=== PATIENT | female | born 1940 | race Caucasian/White ===

== ENCOUNTER 2017-11-27 20:36 | Emergency (ER) | payer MEDICARE ==
--- NOTE | 2017-11-28 01:51 | ED ---
Lower Extremity - HPI Summary HPI Summary: 77-year-old female presents with left knee pain today. She believes she twisted it getting out of the car. She states pain only occurs when she is ambulating. She states that she cannot bend her knee. States that is worse when it is straight. she denies any numbness or tingling. No previous fracture to the area. No fevers. No rash. She hasn't taking anything for her symptoms. - History of Current Complaint Chief Complaint: EDExtremityLower Stated Complaint: LT KNEE PAIN Time Seen by Provider: 11/28/17 01:32 Pain Intensity: 9 - Allergies/Home Medications Allergies/Adverse Reactions: Allergies Allergy/AdvReac Type Severity Reaction Status Date / Time MS Penicillins [Penicillins] Allergy Hives Verified 10/18/15 00:53 PMH/Surg Hx/FS Hx/Imm Hx Endocrine/Hematology History: Denies: Hx Anticoagulant Therapy Cardiovascular History: Reports: Hx Hypertension Sensory History: Reports: Hx Contacts or Glasses Denies: Hx Cataracts, Hx Glaucoma Opthamlomology History: Reports: Hx Contacts or Glasses Denies: Hx Cataracts, Hx Glaucoma Neurological History: Reports: Other Neuro Impairments/Disorders - Menierres Disease, aneursyn - Cancer History Hx Chemotherapy: No Hx Radiation Therapy: No - Surgical History Surgery Procedure, Year, and Place: shunt placed. Infectious Disease History: No Infectious Disease History: Reports: Hx Shingles Denies: Traveled Outside the [place] in Last 30 Days - Social History Alcohol Use: None Substance Use Type: Reports: None Smoking Status (MU): Never Smoked Tobacco Review of Systems Negative: Fever Negative: Chest Pain Negative: Shortness Of Breath Positive: Myalgia - left knee pain All Other Systems Reviewed And Are Negative: Yes Physical Exam Triage Information Reviewed: Yes Vital Signs On Initial Exam: Initial Vitals Temp Pulse Resp BP Pulse Ox 97.7 F 74 16 183/70 96 11/27/17 20:38 11/27/17 20:38 11/27/17 20:38 11/27/17 20:38 11/27/17 20:38 Vital Signs Reviewed: Yes Appearance: Positive: Well-Appearing Skin: Positive: Warm, Dry Head/Face: Positive: Normal Head/Face Inspection Eyes: Positive: Normal, Conjunctiva Clear ENT: Positive: Pharynx normal Respiratory/Lung Sounds: Positive: Clear to Auscultation, Breath Sounds Present Cardiovascular: Positive: Normal, RRR Musculoskeletal: Positive: Strength/ROM Intact - left knee with pain, Edema Left - patella positive ballotment, Other - good pulses, neg anterior drawer, neg valgus and varus stress, nontender knee Neurological: Positive: Normal Psychiatric: Positive: Normal Diagnostics - Vital Signs Vital Signs Temp Pulse Resp BP Pulse Ox 11/27/17 22:25 97.7 F 66 16 153/61 100 11/27/17 20:38 97.7 F 74 16 183/70 96 - Laboratory Lab Statement: Any lab studies that have been ordered have been reviewed, and results considered in the medical decision making process. - Radiology knee Xray Interpretation: No Acute Changes - arthritis, no fx Radiology Interpretation Completed By: ED Physician Lower Extremity Course/Dx - Course Course Of Treatment: 77-year-old female presents with left knee pain today. She believes she twisted it getting out of the car. She states pain only occurs when she is ambulating. She states that she cannot bend her knee. States that is worse when it is straight. she denies any numbness or tingling. No previous fracture to the area. No fevers. No rash. She hasn't taking anything for her symptoms. On exam nontender knee. Full range of motion the knee with pain. Neurovascular intact. Negative anterior drawer negative varus valgus. X-ray read by me as just arthritis. Placed in knee immobilizer. We' ll give referral to orthopedic. Patient understands agrees with plan. - Diagnoses Differential Diagnosis/HQI/PQRI: Positive: Fracture (Closed), Sprain, Strain Provider Diagnoses: Left knee pain Discharge - Sign-Out/Discharge Documenting (check all that apply): Patient Departure - Discharge Plan Condition: Good Disposition: HOME Patient Education Materials: Knee Pain (ED) Referrals: Dorothy Gonzalez MD [Primary Care Provider] - Shannan Sharpe MD [Medical Doctor] - Additional Instructions: Keep immobilizer on area, use crutches as needed Take Tylenol every [address] ice on area Elevate follow up with ortho Return to ED if develop any new or worsening symptoms - Billing Disposition and Condition Condition: GOOD Disposition: Home
[2017-11-28 02:13] VITALS: BP 157/54
--- NOTE | 2017-11-28 07:37 | RAD ---
INDICATION: Left knee injury. TECHNIQUE: 4 views of the left knee were obtained. The knee is flexed in all views limiting the study. FINDINGS: There is mild lateral subluxation of the patella which is likely chronic. There is a large joint effusion present. No fracture is seen. There is chondrocalcinosis in the lateral compartment. There is moderate to severe osteoarthritic change in the patellofemoral compartment. IMPRESSION: 1. LIMITED STUDY, NO FRACTURE IS SEEN. IF THE PATIENT'S SYMPTOMS PERSIST RECOMMEND FOLLOW-UP IMAGING. 2. LARGE JOINT EFFUSION. 3. MILD LATERAL SUBLUXATION OF THE PATELLA AND MODERATE TO SEVERE OSTEOARTHRITIC CHANGE IN THE PATELLOFEMORAL COMPARTMENT. R2
--- NOTE | 2017-11-28 18:39 | ED ---
Progress - Progress Note Progress Note: Pt's final XR read reveals: 1. no fx 2. large joint effusion 3. mild lateral subluxation of patella and moderate to severe OA Pt was placed in a knee immobilizer and told to f/u w/ ortho Repeat image today reveals no effusion, no subluxation. Course/Dx - Course Course Of Treatment: 77-year-old female presents with left knee pain today. She believes she twisted it getting out of the car. She states pain only occurs when she is ambulating. She states that she cannot bend her knee. States that is worse when it is straight. she denies any numbness or tingling. No previous fracture to the area. No fevers. No rash. She hasn't taking anything for her symptoms. On exam nontender knee. Full range of motion the knee with pain. Neurovascular intact. Negative anterior drawer negative varus valgus. X-ray read by me as just arthritis. Placed in knee immobilizer. We' ll give referral to orthopedic. Patient understands agrees with plan. - Diagnoses Provider Diagnoses: Left knee pain Discharge - Sign-Out/Discharge Documenting (check all that apply): Post-Discharge Follow Up - Discharge Plan Condition: Good Disposition: HOME Patient Education Materials: Knee Pain (ED) Referrals: Shannan Sharpe MD [Medical Doctor] - Dorothy Gonzalez MD [Primary Care Provider] - Additional Instructions: Keep immobilizer on area, use crutches as needed Take Tylenol every [address] ice on area Elevate follow up with ortho Return to ED if develop any new or worsening symptoms - Billing Disposition and Condition Condition: GOOD Disposition: Home
== END 2017-11-28 02:10 | disposition home or self-care (01) ==
LOC: ED 20:36
DX: M25.562 Pain in left knee (principal)
CPT/HCPCS: 99282

== ENCOUNTER 2018-06-05 10:05 | Inpatient (IN) | payer MEDICARE ==
--- NOTE | 2018-05-27 17:23 | HP ---
HISTORY AND PHYSICAL: DATE OF ADMISSION/SURGERY: 06/05/18 DATE OF OFFICE VISIT: 05/27/18 SURGEON: Shannan Sharpe MD.* (DICTATED BY RONAN STANLEY) PROCEDURE: Left total knee arthroplasty. CHIEF COMPLAINT: Left knee pain. HISTORY OF PRESENT ILLNESS: Ms. Sherman is a 77-year-old female with continued complaints of left knee pain. She has failed conservative treatment and elected to proceed with a left total knee arthroplasty. PAST MEDICAL HISTORY: Meniere's disease, dementia, and history of a brain aneurysm. PAST SURGICAL HISTORY: Cholecystectomy, knee arthroscopy, and shunt placement. CURRENT MEDICATIONS: 1. Tramadol 50 mg every 6 hours as needed. 2. Hydrochlorothiazide 25 mg a day. 3. Potassium chloride 10 mEq 3 times a day. 4. Vitamin B12. 5. Probiotic Equate. 6. Sumatriptan as needed. 7. Diclofenac 50 mg as needed. 8. Senna. 9. Ibuprofen as needed. 10. Phenobarbital 15 mg 6 tablets at night. 11. Trazodone 50 mg 2 nightly. 12. Melatonin 3 mg 2 nightly. 13. Imodium. 14. Tylenol. 15. Vitamin D3. ALLERGIES: To PENICILLIN. FAMILY HISTORY: AFib. SOCIAL HISTORY: She is a 77-year-old female. She lives with her spouse. She does not smoke or use drugs. REVIEW OF SYSTEMS: A complete 14-point review of systems was reviewed with the patient. It was all negative or noncontributory. She denies history of DVT, PE , hepatitis, HIV, or anesthesia problems. PHYSICAL EXAMINATION GENERAL: She is well developed, well nourished, in no acute distress. VITAL SIGNS: She stands 5 feet 4 inches tall, weighs 128 pounds. Her blood pressure is 130/72, her heart rate is 68. HEENT: Normocephalic, atraumatic. NECK: Supple. No palpable lymph nodes. PULMONARY: The lungs are clear to auscultation bilaterally. CARDIO: Regular rate and rhythm. Strong S1, S2. ABDOMEN: Soft, nontender, nondistended. NEUROLOGICAL: She is alert and oriented x3. MUSCULOSKELETAL: Left lower extremity: The skin is intact. There are no open wounds or abrasions. There is a moderate joint effusion of the left knee, some tenderness over the medial and lateral joint line. There is a 12-degree valgus deformity and range of motion is 10 to 110 degrees of flexion with severe patellofemoral crepitus. She has a 2+ dorsalis pedis pulse. She is able to dorsiflex and plantarflex and has intact sensation. ASSESSMENT AND PLAN: Ms. Sherman is a 77-year-old female with end-stage osteoarthritis of the left knee. She has failed conservative treatment and elected to proceed with a left total knee arthroplasty. The surgery is scheduled for 06/05/[address] Sharpe discussed the risks and benefits of the surgery at today's visit and all of her questions were answered. She will follow up with Dr. Sharpe 2 weeks after the surgery. RONAN STANLEY [id number]/[facility] #: [id number] MTDD
[~2018-06-05 10:05] MED LIST: Acetaminophen TAB* 325 MG PO ONE; Buffered Lidocaine 1% SYRIN* 1 ML/SYRINGE INTRADERM ONE; Famotidine IV* 10 MG/ML 2 ML (20 mg) IV ONE; Gabapentin CAP(*) 300 MG PO ONE; Lactated Ringers 1000 ML Bag* 1,000 ML IV SCH; Tranexamic Acid 1,000 MG in NS 0.9% 50 ML* (outpatient use) IV SCH; celeCOXIB CAP* 100 MG PO ONE
[2018-06-05] MEDS ORDERED: Acetaminophen TAB* 325 MG ONE (10:25)
[2018-06-05] MEDS ORDERED: Gabapentin CAP(*) 300 MG ONE (10:25)
[2018-06-05] MEDS ORDERED: celeCOXIB CAP* 100 MG ONE (10:25)
[2018-06-05] MEDS ORDERED: Buffered Lidocaine 1% SYRIN* 1 ML/SYRINGE INTRADERM ONE (10:26)
[2018-06-05] MEDS ORDERED: Clindamycin 900 MG/D5W BAG(*) 900 MG/50 ML BAG IVPB ONE (10:26)
[2018-06-05] MEDS ORDERED: Famotidine IV* 10 MG/ML 2 ML (20 mg) ONE (10:26)
[2018-06-05] MEDS ORDERED: Midazolam* 1 MG/ML 10 ML VIAL (10 MG) ONE (11:12)
[2018-06-05] MEDS ORDERED: ROPIVACAINE 5 MG/ML 30 ML BTL (0.5%) ONE ×2 (11:12→12:54)
[2018-06-05] MEDS ORDERED: Lidocaine 2% PF * 5 ML VIAL ONE ×2 (11:12→13:52)
[2018-06-05] MEDS ORDERED: KETAMINE HCL* 50 MG/ML 10 ML VIAL ONE (11:12)
[2018-06-05] MEDS ORDERED: Propofol* 10 MG/ML 20 ML BTL ONE ×2 (11:12→13:51)
[2018-06-05] MEDS ORDERED: Ondansetron INJ* 2 MG/ML VIAL ONE ×2 (11:12→13:51)
[2018-06-05] MEDS ORDERED: Dexamethasone IV* 4 MG/ML 1 ML (4 MG) ONE ×2 (11:12→13:51)
[2018-06-05] MEDS ORDERED: fentaNYL* 50 MCG/ML 2 ML VIAL (100 MCG VIAL) ONE ×3 (11:12→13:51)
[2018-06-05] MEDS ORDERED: hydrALAZINE IV* 20 MG/ML VIAL ONE ×2 (12:42→15:58)
[2018-06-05] MEDS ORDERED: oxyCODONE/Acetamin 5/325 MG* TAB PO PRN ×2 (13:48→15:50)
[2018-06-05] MEDS ORDERED: Naloxone* 0.4 MG/ML 1 ML VIAL IV PRN (13:48)
[2018-06-05] MEDS ORDERED: Sevoflurane* BOTTLE ONE (14:07)
[2018-06-05] MEDS ORDERED: EPHEDrine (Pressors)* 50 MG/ML VIAL ONE (15:15)
[2018-06-05] MEDS ORDERED: Bisacodyl SUPP* 10 MG SUPP PR PRN (15:50)
[2018-06-05] MEDS ORDERED: Cyclobenzaprine TAB* 10 MG PO PRN (15:50)
[2018-06-05] MEDS ORDERED: diPHENhydraMINE PO* 25 MG PO PRN (15:50)
[2018-06-05] MEDS ORDERED: Ondansetron INJ* 2 MG/ML VIAL IV PRN (15:50)
[2018-06-05] MEDS ORDERED: diPHENhydraMINE IV* 50 MG/ML 1 ml VIAL (BENADRYL) IV PRN (15:50)
[2018-06-05] MEDS ORDERED: Morphine 4 MG/ML VIAL (1 ml) 4 MG/ML VIAL IV PRN (15:50)
[2018-06-05] MEDS ORDERED: traMADol TAB* 50 MG PO PRN (15:50)
[2018-06-05] MEDS ORDERED: Polyethylene Glycol 3350* 17 GM PACKET PO PRN (15:50)
[2018-06-05] MEDS ORDERED: Magnesium Hydroxide LIQ* 30 ML UDC PO PRN (15:50)
[2018-06-05] MEDS ORDERED: Acetaminophen IV 1GM/100ML * 100 ML ONE (15:58)
[2018-06-05] MEDS ORDERED: HYDROmorphone INJ1* 1 MG/ML SYRINGE ONE (16:43)
[2018-06-05] MEDS: HYDROmorphone INJ1* 1 MG/ML SYRINGE IV PRN ×3 (16:44→17:08)
[2018-06-05] MEDS: oxyCODONE/Acetamin 5/325 MG* TAB PO PRN (19:33)
[2018-06-05] MEDS: Lactated Ringers 1000 ML Bag* 1,000 ML IV SCH (19:35)
[2018-06-05] MEDS: Acetaminophen TAB* 325 MG PO SCH (20:10)
[2018-06-05] MEDS: Docusate CAP* 100 MG PO SCH (20:11)
[2018-06-05] MEDS: PHENobarbital TAB(*) 30 MG PO SCH (20:11)
[2018-06-05] MEDS: Magnesium Hydroxide LIQ* 30 ML UDC PO SCH (20:12)
[2018-06-05] MEDS: Clindamycin 600 MG IVPREMIX(* 600 MG/50 ML SDV IV SCH (23:05)
[2018-06-05] MEDS: Melatonin 3 MG TAB PO SCH (23:12)
[2018-06-06] MEDS: Acetaminophen TAB* 325 MG PO SCH ×3 (04:28→20:29)
[2018-06-06 04:53] LABS: Hematocrit 31 % (33-41); Hemoglobin 10.4 g/dL (12.0-16.0); Mean Platelet Volume 8.9 fL (7.4-10.4); Platelet Count 268 10^3/uL (150-450)
[2018-06-06 05:09] LABS: BUN/Creatinine Ratio 22.4 (8-20); Calcium 8.9 mg/dL (8.6-10.3); EGFR African American 103.5 (>60); EGFR Non-African American 85.6 (>60); Potassium 3.9 mmol/L (3.5-5.0)
[2018-06-06] MEDS: Clindamycin 600 MG IVPREMIX(* 600 MG/50 ML SDV IV SCH ×2 (06:08→13:03)
[2018-06-06] MEDS: Lactated Ringers 1000 ML Bag* 1,000 ML IV SCH ×2 (06:10→17:21)
[2018-06-06] MEDS ORDERED: Cyanocobalamin TAB* 500 MCG PO SCH (09:00)
[2018-06-06] MEDS ORDERED: Apixaban* 2.5 MG TAB PO SCH (09:00)
[2018-06-06] MEDS: Hydrochlorothiazide TAB* 25 MG PO SCH (09:39)
[2018-06-06] MEDS: Cyanocobalamin TAB* 500 MCG PO SCH (09:39)
[2018-06-06] MEDS: Docusate CAP* 100 MG PO SCH ×2 (09:39→20:29)
[2018-06-06] MEDS: oxyCODONE TAB* 5 MG TAB PO PRN ×3 (09:39→18:45)
[2018-06-06] MEDS: Magnesium Hydroxide LIQ* 30 ML UDC PO SCH ×2 (09:39→20:30)
[2018-06-06] MEDS: ACIDOPH PARACASEI B LACTIS PO SCH (09:43)
[2018-06-06] MEDS: Enoxaparin(*) 40 MG/0.4 ML SYR SUBCUT SCH (09:46)
--- NOTE | 2018-06-06 09:50 | PN ---
Progress Note - Progress Note Date of Service: 06/06/18 SOAP: Subjective: []patient seen at bedside, pain under adequate control. Family concerned about her mild confusion and forgetfulness for discharge home. Requesting PMRU consult. She denies SOB, CP, palpitations or dizziness. Objective: [] Vital Signs Temp 97.8 F 06/06/18 08:05 Pulse 73 06/06/18 08:05 Resp 16 06/06/18 08:05 BP 137/48 06/06/18 08:05 Pulse Ox 16 06/06/18 08:05 Intake & Output 06/05/18 06/06/18 06/06/18 18:59 06:59 18:59 Intake Total 2220 1495 Output Total 450 Balance 2220 1045 Weight 125 lb 3.2 oz Intake: IV Fluids 2100 1045 LR 2100 990 abx - clinda 55 Oral 120 450 Output: Urine 250 Sales 200 Other: # Bowel Movements 0 Laboratory Results - last 24 hr 06/06/18 06/06/18 04:33 04:33 Hgb 10.4 L Hct 31 L Plt Count 268 MPV 8.9 Sodium 134 L Potassium 3.9 Chloride 98 L Carbon Dioxide 29 Anion Gap 7 BUN 15 Creatinine 0.67 Est GFR ( Amer) 103.5 Est GFR (Non-Af Amer) 85.6 BUN/Creatinine Ratio 22.4 H Glucose 117 H Calcium 8.9 Left knee dressing is dry and intact calf NT and soft +DF left ankle sensation intact distally Assessment: []s/p left total knee replacement POD #1 Plan: []PT/OT WBAT LLE Lovenox 40 qd x30 days post op ( cannot take Eliquis with Dilantin per pharmacy) PMRU consult
--- NOTE | 2018-06-06 11:53 | OP ---
DATE OF OPERATION: 06/05/18 - ROOM #336 DATE OF : 42 ATTENDING SURGEON: Shannan Sharpe MD PEDIATRIC CRITICAL CARE NURSE: RONAN Schmitt. Ms. Cantor did help throughout the procedure with preparation of the leg, wound retraction, manipulation of the knee, and wound closure. ANESTHESIOLOGIST: Dr. Ovalles. ANESTHESIA: Spinal. PRE-OP DIAGNOSIS: End-stage degenerative osteoarthritis of the left knee joint. POST-OP DIAGNOSIS: End-stage degenerative osteoarthritis of the left knee joint. OPERATIVE PROCEDURE: Left total knee arthroplasty. TOURNIQUET TIME: 60 minutes. COMPLICATIONS: None. ESTIMATED BLOOD LOSS: 200 cc. SPECIMENS: Bone and cartilage from the left knee joint sent to Pathology. HARDWARE USED: This is cemented Ose[employer] Nephew total knee arthroplasty hardware. Two packages of Simplex bone cement. For the femur, a left size 5 narrow posterior stabilized Legion femoral component. For the tibia, size 3 left tibial base plate, Darby II. For the insert, a 9-mm posterior stabilized articular insert size 3-4 and for the patella, a 32 mm 3-peg all- poly patella with 7.5 thickness. BRIEF HISTORY/INDICATIONS: Ms. Sherman is a 77-year-old female with years of increasingly severe left knee pain. She failed conservative treatment with antiinflammatories, pain medications, intraarticular injections, and physical therapy. Her radiographs showed severe end-stage arthritis with [id number] contact. Due to continued pain and decreased quality of life, she elected to undergo a left total knee arthroplasty. Informed consent was obtained from the patient. She understood the risks of surgery included, but were not limited to bleeding, infection, damage to nearby structures, continued pain, need for further surgery, intraoperative fracture, nerve palsy, hardware failure or loosening, knee stiffness, loss of motion, stroke, heart attack, blood clot, and . She wished to proceed. INTRAOPERATIVE FINDINGS: Intraoperatively, the patient was noted to have complete deformation of the patella with extreme bone loss and osteophyte formation. She had a fractured lateral facet. This is a chronic nonunion. She had complete loss of cartilage along the medial and lateral compartment as well. She had extensive osteopenia noted throughout the case. DESCRIPTION OF PROCEDURE: Ms. Sherman was identified in the preanesthesia unit. Her left lower extremity was marked as the correct operative site. Informed consent was signed and placed in the chart. The patient was taken to the operating room and placed under spinal anesthesia. A Sales catheter was placed. Tourniquet was placed on the left thigh. Left lower extremity was prepped and draped in the usual sterile fashion. Preop time-out was made to correctly identify the patient side and site. Appropriate perioperative antibiotics were given within 1 hour of incision. Tourniquet was inflated and total tourniquet time for this procedure was 60 minutes. A midline incision was made with a 10 blade and carried down to the extensor mechanism. New 10 blade was used to make a standard medial parapatellar arthrotomy. Patella was subluxed lateral. The knee was flexed up. The anterior horn of the lateral meniscus and ACL were sharply released. A drill was used to enter the distal femur. Intramedullary distal femoral cutting guide was pinned on the distal femur. Oscillating saw was used to make the distal femoral cut. The external rotation guide was pinned on the distal femur. Distal femur was sized to a size 5. Size 5 multi-cutting jig was pinned on the distal femur. Oscillating saw was used to make the appropriate 4 chamfer cuts. Extramedullary tibial cutting guide was pinned on the proximal tibia. Oscillating saw was used to make a proximal tibial cut perpendicular to the mechanical axis of the tibia. The bone was carefully removed. The knee was brought out into full extension. Spacer block had good fit. Medial and lateral ligaments were well balanced. Flexion and extension gaps were well balanced. The knee was flexed up. Lamina engraver apprentice decorative was placed both medially and laterally. Any remaining meniscus was carefully removed used electrocautery. Curved osteotome was used to remove any posterior osteophytes. Tibial tray and drop sondra were placed and once again confirmed a satisfactory tibial cut. A size 5 narrow left femoral trial was impacted on to the distal femur and had excellent fit. The box for the posterior stabilized implant was prepared using a reamer and box-cut osteotome. A size 3 tibial tray trial with a 9-mm insert trial was placed. The knee was taken through range of motion. The knee had full extension to 130 degrees of flexion with satisfactory patellofemoral tracking. The patella was everted. There was a chronic nonunion along the fracture, along the lateral patellar facet. This was carefully removed. Oscillating saw was used to carefully re-form the completely deformed patella into a surface that kind of extended the patellar implant. The patella was sized to a size 32. Three peg holes were drilled through the size 32 guide. A 32 trial was placed and the knee was taken through range of motion. There was satisfactory patellofemoral tracking. All trials were carefully removed. The tibia was subluxed anteriorly and sized to a size 3. Proximal tibia was prepared using a size 3 keel punch. All bony cut surfaces were copiously irrigated with sterile saline and dried. Final implants were cemented into place starting with the tibia, followed by the femur and last the patella. A 9-mm insert trial was placed and the knee was brought out into full extension. The tourniquet was turned down. Electrocautery was used to obtain meticulous hemostasis. The knee was copiously irrigated with sterile saline. Once the cement had fully cured, the insert trial was removed. Any excess cement was removed from around the capsule and hardware. Final insert chosen was a 9-mm posterior stabilized articular insert size 3/4. This was locked into position on the tibial tray. Stability of the insert was checked and rechecked and noted to be stable. The extensor mechanism was closed using interrupted #1 Vicryl. The rest of the incision was closed in a layered fashion using 0 and 2-0 Vicryl. Skin was closed using running 3-0 nylon suture. Sterile Xeroform, 4x4s, and Webril were used to cover the incision. Michi wrap and cold pack were placed over this. The patient's anesthesia was reversed without difficulty. She will be taken to the PACU in stable condition. Intended weightbearing will be weightbearing as tolerated. [id number]/[facility] #: [id number] [facility]
--- NOTE | 2018-06-06 18:59 | PN ---
Hospitalist Progress Note Date of Service: 06/06/18 Hospital Medicine consulting for co-medical management. Patient was not seen, but chart was reviewed and I spoke with the patient's nurse. HTN well controlled this morning, SBP 130s on home medication. No evidence of seizure activity, and will continue home medication. Morning labs stable. Dispo per Ortho. Thank you for this consultation. We will continue to follow distantly.
[2018-06-06] MEDS: Melatonin 3 MG TAB PO SCH (20:29)
[2018-06-06] MEDS: PHENobarbital TAB(*) 30 MG PO SCH (20:29)
[2018-06-07] MEDS: oxyCODONE TAB* 5 MG TAB PO PRN ×4 (03:04→17:53)
[2018-06-07] MEDS: Acetaminophen TAB* 325 MG PO SCH ×3 (03:04→20:37)
[2018-06-07 05:45] LABS: Hematocrit 28 % (33-41); Hemoglobin 9.5 g/dL (12.0-16.0); Mean Platelet Volume 9.6 fL (7.4-10.4); Platelet Count 220 10^3/uL (150-450)
[2018-06-07] MEDS: Hydrochlorothiazide TAB* 25 MG PO SCH (08:42)
[2018-06-07] MEDS: Magnesium Hydroxide LIQ* 30 ML UDC PO SCH ×2 (08:42→20:46)
[2018-06-07] MEDS: Docusate CAP* 100 MG PO SCH ×2 (08:43→20:46)
[2018-06-07] MEDS: Enoxaparin(*) 40 MG/0.4 ML SYR SUBCUT SCH (08:43)
[2018-06-07] MEDS: Cyanocobalamin TAB* 500 MCG PO SCH (08:43)
[2018-06-07] MEDS: ACIDOPH PARACASEI B LACTIS PO SCH (08:48)
--- NOTE | 2018-06-07 09:33 | PN ---
Progress Note - Progress Note Date of Service: 06/07/18 SOAP: Subjective: []patient seen OOB, sister present. Pain managed, no CP, SOB, dizziness reported. Waiting to hear if PMRU accepting. Objective: [] Vital Signs Temp 98.4 F 06/07/18 08:02 Pulse 81 06/07/18 08:02 Resp 16 06/07/18 08:43 BP 140/63 06/07/18 08:02 Pulse Ox 98 06/07/18 08:02 Intake & Output 06/06/18 06/07/18 06/07/18 18:59 06:59 18:59 Intake Total 586 1304 480 Output Total 850 2300 Balance -264 -996 480 Intake: IV Fluids 654 LR 654 IVPB 106 abx - clinda 106 Oral 480 650 480 Output: Urine 850 2300 Other: Estimated Void Large # Voids 1 Laboratory Results - last 24 hr 06/07/18 05:21 Hgb 9.5 L Hct 28 L Plt Count 220 MPV 9.6 Left knee dressings changed wound benign minimal edema calf NT and soft sensation and circulation remain intact LLE Assessment: [] s/p LTK POD #2 Plan: []PT/OT WBAT LLE Lovenox 40 QD x 1 month post op Await PMRU decision
[2018-06-07] MEDS ORDERED: hydrALAZINE IV* 20 MG/ML VIAL IV SLOW PU PRN (14:27)
[2018-06-07] MEDS: PHENobarbital TAB(*) 30 MG PO SCH (20:37)
[2018-06-07] MEDS: Melatonin 3 MG TAB PO SCH (20:37)
[2018-06-08] MEDS: Acetaminophen TAB* 325 MG PO SCH ×2 (02:54→12:45)
--- NOTE | 2018-06-08 03:30 | CONS ---
CC: Dr. Montano * CONSULTATION REPORT: DATE OF CONSULT: 06/05/18 DATE OF ADMISSION: 06/05/18 PRIMARY CARE PROVIDER: Dr. Montano. REQUESTING PHYSICIAN IN CONSULT: Dr. Sharpe. ATTENDING PHYSICIAN: Dr. Dwyer (dictated by Audra Robles, PHILIPPE). REASON FOR CONSULT: Co-medical management of dementia, hypertension. HISTORY OF PRESENT ILLNESS/HOSPITAL COURSE: I will refer you to Dr. Sharpe's history and physical dictated on __ for complete details, but in short, Mrs. Sherman is a 77-year-old female with a past medical history significant for dementia, Meniere disease and brain aneurysm, who [place] [facility] [place]. PAST MEDICAL HISTORY: 1. Meniere disease. 2. Dementia. 3. History of brain aneurysm. 4. Hypertension. PAST SURGICAL HISTORY: 1. Cholecystectomy. 2. Knee arthroscopy. 3. Shunt placement. HOME MEDICATIONS: 1. Trazodone 100 mg p.o. at bedtime. 2. HCTZ 25 mg p.o. q.a.m. 3. Phenobarbital 90 mg p.o. at bedtime. 4. Melatonin 6 mg p.o. at bedtime. 5. Probiotic 1 tab p.o. q.a.m. 6. Allergy medication 1 tab p.o. q.a.m. 7. Diclofenac potassium 50 mg p.o. daily p.r.n. 8. Vitamin B12 one tab p.o. q.a.m. 9. Vitamin D3 1000 units p.o. q.a.m. 10. Tylenol 1 tab p.o. daily p.r.n. ALLERGIES: PENICILLIN. FAMILY HISTORY: The patient has a family history of atrial fibrillation. SOCIAL HISTORY: The patient lives at home with her . The patient ambulates independently. The patient does not smoke. She reports she quit 40 years ago. She reports a 15-year 3 packs a day history. The patient does not drink. The patient denies any drugs. The patient is a full code. REVIEW OF SYSTEMS: A 14-point review of system was completed and all were negative. PHYSICAL EXAM: General: Mrs. Sherman is a 77-year-old female who is sitting in the bed on short-stay surgical. She appears in no acute distress. She appears stated age. Vital Signs: Temp 97.4, HR 65, RR 16, O2 saturation 99% on 2 L, BP 134/57. HEENT: PERRLA. EOMs intact. Oral mucosa is moist without lesions. Posterior pharynx is clear. Neck: Full range of motion. No lymphadenopathy. Respiratory: Symmetrical chest expansion. No accessory muscle use. Lung sounds are clear. No rhonchi, wheezes or rubs. Cardiac: Regular rate and rhythm. S1, S2 present. No murmurs, rubs, or gallops. Extremities: Skin is warm and smooth bilaterally. No edema. No clubbing or cyanosis. Pedal pulses 2+ bilaterally. Musculoskeletal: The patient currently denies pain to the left knee. No other pain. Abdomen: Soft, nontender. Bowel sounds x4. Neuro: Awake, alert, oriented. Motor strength is 5/5 in the upper and lower extremities. Skin: Grossly intact without lesions. Dressing to the left knee is clean, dry, and intact. ASSESSMENT AND PLAN: Mrs. Sherman is a 77-year-old female with a past medical history significant for Meniere's, history of brain aneurysm and hypertension, who [place] [facility] [place] an elective left total knee replacement. She will be placed on short-stay floor. 1. Status post left total knee replacement. Management per Ortho. 2. Meniere disease. Supportive care. 3. Dementia. Supportive care. The patient should be reoriented as needed. The patient should be provided with glasses and hearing aids if she has them. We should avoid medications that would increase the risk of delirium. 4. History of brain aneurysm, status post shunt placement. The patient's family reports she has a history of brain aneurysm, status post shunt placement and clips. Friend and family report that she did have a seizure prior to the diagnosis, which led to the diagnosis. The patient has not had a seizure since that time. The patient should continue her phenobarbital 90 mg at night. The patient should be placed on seizure precautions. 5. Hypertension. The patient's reports she does have a history of hypertension and that is why she is on hydrochlorothiazide 25 mg p.o. daily. The patient can continue this as she has no hypotensive episodes currently. The patient's BP should be monitored regularly. 6. FEN: Diet has been ordered by Ortho. 7. Code status: The patient is a full code. 8. DVT prophylaxis: Ortho has ordered Lovenox. TIME SPENT: Approximately 60 minutes was spent on this consultation, greater than half the time was spent with the patient and caregiver obtaining my history , performing my physical exam, and reviewing my plan of care. This case has been reviewed with my attending, Dr. Dwyer, who agrees with my plan. AUDRA ROBLES, [place] [id number]/[facility] #: [id number] MTDD
[2018-06-08 06:55] LABS: Hematocrit 28 % (33-41); Hemoglobin 9.3 g/dL (12.0-16.0); Mean Platelet Volume 9.6 fL (7.4-10.4); Platelet Count 217 10^3/uL (150-450)
[2018-06-08] MEDS: oxyCODONE/Acetamin 5/325 MG* TAB PO PRN ×2 (08:01→12:47)
[2018-06-08] MEDS: Cyanocobalamin TAB* 500 MCG PO SCH (09:35)
[2018-06-08] MEDS: Hydrochlorothiazide TAB* 25 MG PO SCH (09:35)
[2018-06-08] MEDS: Docusate CAP* 100 MG PO SCH (09:35)
[2018-06-08] MEDS: Enoxaparin(*) 40 MG/0.4 ML SYR SUBCUT SCH (09:35)
[2018-06-08] MEDS: ACIDOPH PARACASEI B LACTIS PO SCH (09:36)
[2018-06-08] MEDS: Magnesium Hydroxide LIQ* 30 ML UDC PO SCH (09:36)
--- NOTE | 2018-06-08 11:03 | PN ---
Progress Note - Progress Note Date of Service: 06/08/18 SOAP: Subjective: []Pt seen at bedside with her family present. Denies CP, SOB, dizziness, nausea. Knee pain is well controlled. PMRU unable to offer a bed, patient and family concerned about going home alone. Objective: []General: Well appearing, NAD LLE: Left knee dressing changed, incision CDI without erythema or discharge. Thigh is soft, medial thigh with ecchymosis which is not tender, fluctuant or indurated. DF/PF intact, DP2+, sensation intact to light touch distally. Calves supple and nontender without erythema, edema or palpable cords Assessment: [] s/p LTK POD #3 Plan: []PT/OT WBAT LLE Lovenox 40 QD x 1 month post op human services manager will discuss DC options with pt. Daughter offered for patient to go to her home during rehab which I have encouraged. Plan for DC this afternoon Vital Signs Temp 98.2 F 06/08/18 07:57 Pulse 95 06/08/18 07:57 Resp 18 06/08/18 08:01 BP 126/46 06/08/18 07:57 Pulse Ox 98 06/08/18 08:00 Intake & Output 06/07/18 06/08/18 06/08/18 18:59 06:59 18:59 Intake Total 600 900 100 Output Total 200 900 900 Balance 400 0 -800 Intake: Oral 600 900 100 Output: Urine 200 900 900 Other: Estimated Void Large Date of Last Bowel 06/07/2018 Movement # Bowel Movements 1 1 Estimated Stool Amount Large Medium # Voids 1 Laboratory Last Values Hgb 9.3 g/dL (12.0-16.0) L 06/08/18 06:45 Hct 28 % (33-41) L 06/08/18 06:45 Plt Count 217 10^3/uL (150-450) 06/08/18 06:45 MPV 9.6 fL (7.4-10.4) 06/08/18 06:45 Sodium 134 mmol/L (135-145) L 06/06/18 04:33 Potassium 3.9 mmol/L (3.5-5.0) 06/06/18 04:33 Chloride 98 mmol/L (101-111) L 06/06/18 04:33 Carbon Dioxide 29 mmol/L (22-32) 06/06/18 04:33 Anion Gap 7 mmol/L (2-11) 06/06/18 04:33 BUN 15 mg/dL (6-24) 06/06/18 04:33 Creatinine 0.67 mg/dL (0.51-0.95) 06/06/18 04:33 Est GFR ( Amer) 103.5 (>60) 06/06/18 04:33 Est GFR (Non-Af Amer) 85.6 (>60) 06/06/18 04:33 BUN/Creatinine Ratio 22.4 (8-20) H 06/06/18 04:33 Glucose 117 mg/dL (70-100) H 06/06/18 04:33 Calcium 8.9 mg/dL (8.6-10.3) 06/06/18 04:33 []
[2018-06-08 12:29] VITALS: BP 158/54
--- NOTE | 2018-06-08 13:45 | DS ---
Orthopedic Discharge Summary - Discharge Summary Date of Admission:06/05/18 Date of Discharge:06/08/18 Date of Surgery: 06/05/18 Attending Orthopedic Provider: Dr Sharpe Pre-operative Diagnosis: Left knee osteoarthritis Operative Procedure:Left total knee arthroplasty History: RHONA CAMILO is a 77 year old F with years of increasingly severe left knee pain. Patient has failed conservative management and has elected to undergo a left total knee replacement Hospital Course: RHONA was admitted to [facility] on 06/05/18. Patient underwent a left total knee replacement without complication followed by a brief recovery in PACU and transfer to the Short Stay Surgical Unit in stable condition. Our hospitalist service, physical therapy and occupational therapy also participated in this patients care. Post-op day 1: patient was alert and in no acute distress. Dressing was clean, dry and intact. Operative extremity dorsiflexion and plantarflexion intact, sensation intact to light touch distally, DP2+. Post-op day two and three: dressing was changed, incision was clean, dry and intact. 06/08/18 patient was deemed to be medically and orthopedically stable for discharge home. Physical therapy goals were met. Home Medications Medication Instructions Recorded Confirmed Type PHENobarbital [Phenobarbital] 90 mg PO BEDTIME 10/18/15 06/05/18 History Acetaminophen TAB* [Tylenol TAB*] 1 tab PO DAILY PRN 05/27/18 06/05/18 History Cholecalciferol (Vitamin D3) 1,000 unit PO QAM 05/27/18 06/05/18 History [Vitamin D3] Cyanocobalamin TAB* [Vitamin B12 1 tab PO QAM 05/27/18 06/05/18 History TAB*] Diclofenac Potassium [Zipsor] 50 tab PO DAILY PRN 05/27/18 06/05/18 History Equate Allergy 1 tab PO QAM 05/27/18 06/05/18 History L.acidoph,Paracasei, B.lactis 1 tab PO QAM 05/27/18 06/05/18 History [Probiotic] Melatonin 6 mg PO BEDTIME 05/27/18 06/05/18 History hydroCHLOROthiazide 25 mg PO QAM 05/27/18 06/05/18 History [Hydrochlorothiazide] traZODone TAB* [Desyrel TAB*] 100 mg PO BEDTIME 05/27/18 06/05/18 History Acetaminophen TAB* [Tylenol TAB*] 975 mg PO Q8H tab 06/08/18 Rx Docusate CAP* [Colace Cap*] 100 mg PO BID PRN #90 cap 06/08/18 Rx Enoxaparin(*) [Lovenox(*)] 40 mg SUBCUT DAILY 30 Days #28 06/08/18 Rx syringe oxyCODONE/Acetamin 5/325 MG* 1 tab PO Q4HR PRN tab MDD 10 06/08/18 Rx [Percocet 5/325 TAB*] oxyCODONE/Acetamin 5/325 MG* 2 tab PO Q4HR PRN #70 tab MDD 10 06/08/18 Rx [Percocet 5/325 TAB*] Discharge Instructions following Orthopedic Surgery: Activity: * Weight Bearing as tolerated * Continue physical therapy and occupational therapy exercises as shown Wound care: * OK to shower on post-op day 3, no bathing, swimming, or submerging wound. * Use gentle soap, pat dry. Cover with gauze, KAYODE wrap or tape. * Visiting home nurse to do wound checks. Call Orthopedic office for: * Increased drainage * Redness * Increased pain * Fever Go to ER with shortness of breath or chest pain. Diet: * Regular diet * Increase fluids and fiber to prevent constipation. * Continue to use stool softeners, call office if no bowel motion within 48 hours. Medications See Home Medication List in your packet for medications that you should take after discharge. DVT Prophylaxis Lovenox Dosing: [40]mg once a day for 30 days post op Pain Control: Percocet 5/325 mg 1-2 tabs by mouth every 4-6 hours as needed for pain. Maximum of 10 tabs per day. Please note that Percocet contains Tylenol (acetaminophen). Maximum daily dose of Tylenol is 4000 mg from all sources. Antibiotics are required prior to any dental work. FOLLOW UP: Follow up with [[facility]] Within 10-14 days, call for appointment Please call our office with any questions or concerns ([phone]) RX: [facility]
== END 2018-06-08 15:00 | disposition home health service (06) | DRG 470 ==
LOC: AA 10:05 → SSU 15:50
PROVIDERS: ADMIT Orthopaedic Surgery Adult Reconstructive Orthopaedic Surgery; ATTEND Orthopaedic Surgery Adult Reconstructive Orthopaedic Surgery
PROC: 0SRD0J9 Replacement of Left Knee Joint with Synthetic Substitute, Cemented, Open Approach (ICD-10-PCS; principal; 2018-06-05 12:00)
DX: M17.0 Bilateral primary osteoarthritis of knee (principal); F03.90 Unspecified dementia, unspecified severity, without behavioral disturbance, psychotic disturbance, mood disturbance, and anxiety; Z96.89 Presence of other specified functional implants; M21.062 Valgus deformity, not elsewhere classified, left knee; M25.462 Effusion, left knee; E78.2 Mixed hyperlipidemia; G43.109 Migraine with aura, not intractable, without status migrainosus; F41.1 Generalized anxiety disorder; E53.8 Deficiency of other specified B group vitamins; H81.01 Meniere's disease, right ear; I10 Essential (primary) hypertension; M85.88 Other specified disorders of bone density and structure, other site; M25.762 Osteophyte, left knee; Z88.0 Allergy status to penicillin; Z90.49 Acquired absence of other specified parts of digestive tract; Z82.49 Family history of ischemic heart disease and other diseases of the circulatory system; Z79.01 Long term (current) use of anticoagulants; Z88.8 Allergy status to other drugs, medicaments and biological substances
CPT/HCPCS: 36415; 80048; 84300; 85014; 85018; 85049; A9270-GY; G8978-GP-CI; G8978-GP-CJ; G8979-GP-CI; G8987-GO-CK; G8988-GO-CI; J0360; J1100; J1170; J1650; J2250; J2405; J2704; J2795; J3010

== ENCOUNTER 2019-02-19 13:49 | Emergency (ER) | payer MEDICARE ==
[2019-02-19 14:09] VITALS: BP 200/70
--- NOTE | 2019-02-19 14:44 | UC ---
Hand/Wrist HPI - HPI Summary HPI Summary: 78-year-old female with history of dementia presents with for a lesion to her left hand. States was initially a red fluid-filled lesion that has progressively become darker in color over the past week. Patient is unable to recall any injury. States lesion is mildly tender with palpation. Denies fever , chills, erythema, edema, decreased range of motion, numbness or tingling. - History Of Current Complaint Chief Complaint: UCUpperExtremity Stated Complaint: FOREIGN BODY IN HAND Time Seen by Provider: 02/19/19 14:30 Hx Obtained From: Patient, Family/[employer] Pain Intensity: 0 - Allergies/Home Medications Allergies/Adverse Reactions: Allergies Allergy/AdvReac Type Severity Reaction Status Date / Time Penicillins Allergy Unknown Verified 06/05/18 10:55 Reaction Details PMH/Surg Hx/FS Hx/Imm Hx Cardiovascular History: Hypertension Neurological History: Dementia, Other - Meniere disease Psychological History: Anxiety Other History Of: Negative For: Anticoagulant Therapy - Surgical History Surgical History: Yes Surgery Procedure, Year, and Place: shunt placed. - Family History Known Family History: Positive: Non-Contributory - Social History Occupation: Retired Lives: With Family Alcohol Use: None Alcohol Amount: holidays Substance Use Type: None Smoking Status (MU): Never Smoked Tobacco Amount Used/How Often: 3 packs a day Have You Smoked in the Last Year: No When Did the Patient Quit Smoking/Using Tobacco: 1976 - Immunization History Most Recent Influenza Vaccination: last fall Most Recent Tetanus Shot: a few years ago Most Recent Pneumonia Vaccination: in the past Review of Systems All Other Systems Reviewed And Are Negative: Yes Constitutional: Negative: Fever, Chills Skin: Positive: Other - See HPI Respiratory: Positive: Negative Cardiovascular: Positive: Negative Gastrointestinal: Positive: Negative Genitourinary: Positive: Negative Motor: Negative: Weakness Neurovascular: Negative: Decreased Sensation Musculoskeletal: Negative: Arthralgia, Decreased ROM Neurological: Positive: Negative Is Patient Immunocompromised?: No Physical Exam - Summary Physical Exam Summary: GENERAL APPEARANCE: Well developed, well nourished, alert and cooperative, and appears to be in no acute distress. CARDIAC: Normal S1 and S2. No S3, S4 or murmurs. Rhythm is regular. There is no peripheral edema, cyanosis or pallor. Extremities are warm and well perfused. Capillary refill is less than 2 seconds. Peripheral pulses intact. LUNGS: Clear to auscultation without rales, rhonchi, wheezing or diminished breath sounds. ABDOMEN: Positive bowel sounds. Soft, nondistended, nontender. No guarding or rebound. No masses or hepatosplenomegally. MUSKULOSKELETAL: ROM intact to all extremities. No joint erythema or tenderness. Normal muscular development. Normal gait. EXTREMITIES: 0.5 cm nontender hemorrhagic blister to the lateral, palmar aspect of the left hand. No erythema or edema. SKIN: Skin normal color, texture and turgor. Triage Information Reviewed: Yes Vital Signs: Initial Vital Signs Temp 97.8 F 02/19/19 14:06 Pulse 68 02/19/19 14:06 Resp 16 02/19/19 14:06 BP 200/70 02/19/19 14:06 Pulse Ox 100 02/19/19 14:06 Vital Signs Reviewed: Yes Images Hands: 1 - 0.5 cm hemorragic blister Hand/Wrist Course/Dx - Course Course Of Treatment: 78-year-old female with history of dementia presents with for a lesion to her left hand. States was initially a red fluid-filled lesion that has progressively become darker in color over the past week. Patient is unable to recall any injury. States lesion is mildly tender with palpation. Denies fever , chills, erythema, edema, decreased range of motion, numbness or tingling. Afebrile. Hypertensive otherwise vital signs stable. Patient had a 0.5 cm nontender hemorrhagic blister to the lateral, palmar aspect of the left hand without erythema or edema. Discussed with patient and spouse that the lesion appears to be a blood blister likely from a traumatic injury. She is to follow up with her PCP as needed. Anticipatory guidance and warning symptoms reviewed with patient and spouse. Verbalize understanding and agrees with POC. - Differential Dx/Diagnosis Provider Diagnosis: Blood blister Discharge ED - Sign-Out/Discharge Documenting (check all that apply): Patient Departure All imaging exams completed and their final reports reviewed: No Studies - Discharge Plan Condition: Stable Disposition: HOME Patient Education Materials: Blister (ED) Referrals: Gamal Montano MD [Primary Care Provider] - (As needed.) Additional Instructions: The lesion on your hand appears to be a blood blister. This should heal on its own without complication. Follow up with your primary care provider as needed. Watch for signs of infection including fever greater than 100.5 F, severe pain not managed with pain medication, redness that spreads, red streaking up the arm , swelling of the hand/fingers. Seek immediate medical attention should any of these occur. - Billing Disposition and Condition Condition: STABLE Disposition: Home
== END 2019-02-19 14:50 | disposition home or self-care (01) ==
LOC: UCEAST 13:49
DX: S60.522A Blister (nonthermal) of left hand, initial encounter (principal); I10 Essential (primary) hypertension; Z80.0 Family history of malignant neoplasm of digestive organs; X58.XXXA Exposure to other specified factors, initial encounter; Y92.9 Unspecified place or not applicable
CPT/HCPCS: 99211; G0463

== ENCOUNTER 2019-07-01 04:19 | Emergency (ER) | payer MEDICARE ==
--- OUTSIDE RECORDS SUMMARY | 2019-07-01 04:25 | XMS REPORT | Summary of Care ---
:1940 Author Organization [facility] Address [address] [place] [address] Care Team Providers Name Role Phone Gamal Montano Primary Care Provider Reason for Visit Reason Comments Dementia Discuss dementia. 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 Loperamide HCl (IMODIUM Take by 0 Active A-D PO) mouth. Probiotic Product Take 1 Tab 0 Active (PROBIOTIC DAILY PO) by mouth DAILY. diclofenac potassium Take 1 Tab 60 Tab 5 Active (CATAFLAM) 50 MG Oral by mouth TWO 9 Tab TIMES DAILY NEEDED (knee pain). hydrochlorothiazide TAKE ONE 90 Tab 3 Active (HCTZ, ORETIC) 25 MG TABLET BY 9 Oral TabIndications: MOUTH ONCE Essential hypertension DAILY phenobarbital 15 MG Oral TAKE 6 180 Tab 1 Active TabIndications: Abnormal TABLETS BY 0 electroencephalogram MOUTH AT BEDTIME, MAX OF 6 PER DAY [id number] Take by 0 Discontinued (EQUATE ALLERGY-SINUS mouth. 020 (Provider HEADACHE) 12.5-30-500 MG Discontinued) Oral Tab sumatriptan (IMITREX) 50 TAKE 1 TO 2 30 Tab 3 Discontinued MG Oral Tab TABLETS ONCE 8 020 (Provider NEEDED Discontinued) FOR MIGRAINE clonazePAM (KLONOPIN) TAKE ONE 60 Tab 0 Discontinued 0.5 MG Oral TABLET BY 8 020 (Provider TabIndications: MOUTH TWICE Discontinued) Generalized anxiety A DAY disorder DIRECTED (MAX OF 2 PER ) diclofenac potassium TAKE ONE 60 Tab 5 Discontinued (CATAFLAM) 50 MG Oral TABLET BY 8 020 (Provider Tab MOUTH TWICE Discontinued) A DAY NEEDED FOR KNEE PAIN diclofenac potassium TAKE ONE 60 Tab 5 Discontinued (CATAFLAM) 50 MG Oral TABLET BY 9 020 (Provider Tab MOUTH TWICE Discontinued) A DAY NEEDED FOR KNEE PAIN diclofenac EC (VOLTAREN) Take 50 mg 90 Tab 5 Discontinued 50 MG Oral Tab EC by mouth 9 020 (Provider THREE TIMES Discontinued) DAILY. trazodone (DESYREL) 50 Take 1 Tab 90 Tab 3 Discontinued MG Oral Tab by mouth 9 020 (Provider EVERY Discontinued) BEDTIME. trazodone (DESYREL) 50 Take 1 Tab 90 Tab 3 Discontinued MG Oral Tab by mouth 0 020 (Provider EVERY Discontinued) BEDTIME. Take 1 to 3 by mouth daily at bedtime as directed. 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[employer] shunt 11/12/2017 Overview: Dr Boo [facility] Memory loss of unknown cause 04/03/2017 Cerebral aneurysm without rupture 06/18/2016 Overview: S/p craniotomy [place] Dr Boo Several clips placed in the past cerebral arteries Meniere's disease of right ear 06/18/2016 Overview: ENT Dr Ocampo Abnormal electroencephalogram 06/18/2016 Overview: Phenobarbital treatment Neurology Kayleen Orozco Mixed hyperlipidemia 06/18/2016 Migraine with aura and without status migrainosus, not intractable 06/18/2016 Essential hypertension 06/18/2016 Generalized anxiety disorder 06/18/2016 Vitamin B12 deficiency 06/18/2016 Overview: b12 level 50 05/2016 Primary osteoarthritis of both knees 06/18/2016 documented as of this encounter (statuses as of 05/14/2019) Resolved Problems Problem Noted Date Resolved Date Personal history of seizure disorder 06/18/2016 06/18/2016 Overview: Phenobarbital preventive treatment Anxiety 05/27/2017 documented as of this encounter (statuses as of 05/14/2019) Immunizations Name Administration Dates Next Due Influenza (IM) Preservative Free 12/09/2016 Influenza Vaccine 65 Yrs + 01/05/2019 Influenza Vaccine High Dose 12/23/2017 PNEUMOCOCCAL POLYSACCHARIDE VACCINE 06/19/2011 Pneumococcal Conjugate Vaccine 01/06/2008 TDAP Vaccine 06/10/2011 TETANUS & DIPHTHERIA TOXOID (OVER 7 YRS) 09/17/2006 ZOSTER (SHINGRIX) VACCINE 03/11/2019, 12/09/2018 ZOSTER (ZOSTAVAX) VACCINE 02/21/2012 documented as of this encounter Social History Tobacco Use Types Packs/Day Years Used Date Never Smoker Smokeless Tobacco: Never Used Alcohol Use Drinks/Week oz/Week Comments No Sex Assigned at Date Recorded Not on file documented as of this encounter Last Filed Vital Signs Vital Sign Reading Time Taken Comments Blood Pressure 142/72 05/14/2019 5:22 PM EST Pulse 70 05/14/2019 5:22 PM EST Temperature - - Respiratory Rate - - Oxygen Saturation - - Inhaled Oxygen Concentration - - Weight 61.2 kg (135 lb) 05/14/2019 5:22 PM EST Height 162.6 cm (5' 4") 05/14/2019 5:22 PM EST Body Mass Index 23.17 05/14/2019 5:22 PM EST documented in this encounter Patient Instructions Patient InstructionsGamal Montano MD - 05/14/2019 5:20 PM ESTBlood work this month Stop trazodone Stop equate Follow up me 3-4 weeks memory loss documented in this encounter Progress Notes Gamal Montano MD - 05/14/2019 5:20 PM EST PATIENT: Yanna Sherman : 1940 DATE OF SERVICE: 05/14/2019 CHIEF COMPLAINT: Chief Complaint Patient presents with ? Dementia Discuss dementia. Subjective HISTORY OF PRESENT ILLNESS: Yanna Sherman is a 78-y.o. female. HPI Here with spouse persistent short term memory loss for 2-3 years he notes more trouble for her with cokking grocery shopping trouble with names and days or week No focal symptoms she also complains of this She denies depression she has chronic anxiety and poor sleep and uses trazodone and benadryl (diphenhydramine) every night for sleep Denies parkinson's disease type symptoms she had remote history of SUPERVISOR P[employer] shunt many years ago She is on phenobarbital for history of seizures no seizures in many years Patient Active Problem List Diagnosis ? Cerebral aneurysm without rupture ? Meniere's disease of right ear ? Abnormal electroencephalogram ? Mixed hyperlipidemia ? Migraine with aura and without status migrainosus, not intractable ? Essential hypertension ? Generalized anxiety disorder ? Vitamin B12 deficiency ? Primary osteoarthritis of both knees ? Memory loss of unknown cause ? 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 Current Outpatient Medications Medication Sig ? Cyanocobalamin (VITAMIN B-12) 1000 MCG Oral Tab Take 1 Tab by mouth DAILY. ? diclofenac potassium (CATAFLAM) 50 MG Oral Tab Take 1 Tab by mouth TWO TIMES DAILY NEEDED(knee pain). ? hydrochlorothiazide (HCTZ, ORETIC) 25 MG Oral Tab TAKE ONE TABLET BY MOUTH ONCE DAILY ? Loperamide HCl (IMODIUM A-D PO) Take by mouth. ? phenobarbital 15 MG Oral Tab TAKE 6 TABLETS BY MOUTH AT BEDTIME, MAX OF 6 PER DAY ? Probiotic Product (PROBIOTIC DAILY PO) Take 1 Tab by mouth DAILY. No current facility-administered medications for this visit. Allergies Allergen Reactions ? Penicillins Rash ? Prozac [Fluoxetine] Other Became hyper & depressed Social History Socioeconomic History ? Marital status: Spouse name: Not on file ? Number of children: Not on file ? Years of education: Not on file ? Highest education level: Not on file Occupational History ? Not on file Social Needs ? Financial resource strain: Not on file ? Food insecurity Worry: Not on file Inability: Not on file ? Transportation needs Medical: Not on file Non-medical: Not on file Tobacco Use ? Smoking status: Never Smoker ? Smokeless tobacco: Never Used Substance and Sexual Activity ? Alcohol use: No ? Drug use: No ? Sexual activity: Not Currently Lifestyle ? Physical activity Days per week: Not on file Minutes per session: Not on file ? Stress: Not on file Relationships ? Social connections Talks on phone: Not on file Gets together: Not on file Attends jainism service: Not on file Active member of club or organization: Not on file Attends meetings of clubs or organizations: Not on file Relationship status: Not on file ? Intimate partner violence Fear of current or ex partner: Not on file Emotionally abused: Not on file Physically abused: Not on file Forced sexual activity: Not on file Other Topics Concern ? Back Care Not Asked ? Bike Helmet Not Asked ? Blood Transfusions No ? Caffeine Concern Not Asked ? Exercise Yes Comment: walks ? Hobby Hazards Not Asked ? International Travel Not Asked ? Service Not Asked ? Occupational Exposure Not Asked ? Seat Belt Not Asked ? Self-Exams Not Asked ? Sleep Concern Not Asked ? Special Diet No ? Stress Concern Not Asked ? 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 Pets: none Over the last 2 weeks, have you been feeling down, depressed, anxious, or hopeless?: 0 Over the past 2 weeks, have you felt little interest or pleasure in doing things ?: 0 REVIEW OF SYSTEMS: ROS she denies depression no cardiovascular or gastro-intestinal symptoms last b12 level was 900 Objective PHYSICAL EXAM: VITALS: BP (!) 142/72 | Pulse 70 | Ht 5' 4" (1.626 m) | Wt 135 lb (61.2 kg) | BMI 23.17 kg/m Body mass index is 23.17 kg/m. Physical Exam Cranial nerves are normal. Fundi are normal with sharp disc margins, no papilledema, hemorrhages or exudates noted. GABRIELLE. EOM's intact. Neck supple. No cranial or carotid bruits. Good carotid upstroke. DTR's, motor power and sensation normal and symmetric. Babinski sign absent. Gait and station normal. Cerebellar function is normal. No parkinson's disease findings Mini Mental Status Exam score 17/30 poor 3 item recall and naming The get up and go test is normal (observation of patient arising from chair and ambulating independently to the door, then opening and closing the door). I spent 40 minutes with the patient, greater than half of this time in direct face to face counseling regarding the condition and the plan of care. ASSESSMENT / IMPRESSION: ICD-9-CM ICD-10-CM 1. Memory loss of unknown cause differential diagnosis anxiety related medication side effects Or alzheimer dementia disease also includes vp construction shunt malfunction hydrocephalus and b12 level low 780.93 R41.3 VITAMIN B12 / FOLATE THYROID STIMULATING HORMONE COMPREHENSIVE METABOLIC PANEL CBC WITH DIFFERENTIAL 2. Vitamin B12 deficiency check level continue current medications 266.2 E53.8 3. Essential hypertension at goal continue current medications 401.9 I10 4. 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 Adverse effect of drug, initial encounter stop benadryl (diphenhydramine) and trazodone E947.9 T50.905A 6. Chronic insomnia ok to use melatonin 780.52 F51.04 Patient Instructions Blood work this month Stop trazodone Stop equate Follow up me 3-4 weeks memory loss : Gamal Montano MD 05/14/2019 18:49 documented in this encounter Plan of Treatment Date Type Specialty Care Team Description 06/16/2019 Office Visit [place] [address] [place] [address] [phone] Name Type Priority Associated Diagnoses Order Schedule VITAMIN B12 / FOLATE Lab Routine Memory loss of unknown Expected: 2019 cause (Approximate), Expires: 11/10/2019 THYROID STIMULATING HORMONE Lab Routine Memory loss of unknown Expected: cause (Approximate), Expires: 11/10/2019 COMPREHENSIVE METABOLIC Lab Routine Memory loss of unknown Expected: 2019 PANEL cause (Approximate), Expires: 11/10/2019 CBC WITH DIFFERENTIAL Lab Routine Memory loss of unknown Expected: 2019 cause (Approximate), Expires: 11/10/2019 Health Maintenance Due Date Last Done Comments MEDICARE ANNUAL WELLNESS VISIT 1940 DEPRESSION SCREENING 05/13/2020 05/14/2019 FALL RISK ASSESSMENT 05/13/2020 05/14/2019, 05/14/2019 DTaP/Tdap/Td Vaccines (3 - 06/09/2021 06/10/2011, Tdap) 09/17/2006 OSTEOPOROSIS SCREENING 02/04/2028 02/03/2018 PNEUMOCOCCAL 65+YRS Completed 06/19/2011, 01/06/2008 INFLUENZA VACCINE Completed 01/05/2019, 12/23/2017, 12/09/2016 ZOSTER IMMUNIZATION SERIES Completed 03/11/2019, 12/09/2018, 02/21/2012 HEPATITIS A IMMUNIZATION Aged Out No longer eligible based SERIES on patient's age to complete this topic HPV IMMUNIZATION SERIES Aged Out No longer eligible based on patient's age to complete this topic MENINGOCOCCAL VACCINE IMM Aged Out No longer eligible based on patient's age to complete this topic documented as of this encounter Goals Goal Patient Goal Associated Recent Patient-Stated? Author Type Problems Progress Blood Pressure Blood Pressure 142/72 No Charmaine, < 150/90 (05/14/2019 Gamal Fuchs, 5:22 PM EST) Note: This is an individualized treatment (blood pressure) goal for Yanna Sherman : Displayed above (on the left) is your goal for blood pressure control. Your most recent blood pressure is also shown above, on the right. You should try to achieve blood pressures that are lower than your goal listed above (on the left). Take all prescribed medications as Self-management Gamal Coy MD directed Note: This is an individualized self-management goal for Yanna Sherman: Please take all prescribed medications as directed. 1. Do not skip doses. If you cannot afford your medications, talk with your doctor. 2. Use a pill reminder system such as a pill box if needed. Your pharmacist can help you with this. 3. Contact your Pharmacy 5 days before your medication runs out. If you cannot take your medications for any reasons, talk with your doctor. 4. Please bring all of your medication bottles and inhalers (or a list of all your medications/inhalers) with you to every visit. Potential barriers to meeting all of your care plan goals will continue to be addressed on an ongoing basis. 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 Presence of cerebrospinal fluid drainage device Adverse effect of drug, initial encounter Chronic insomnia Insomnia, unspecified documented in this encounter Insurance Payer Benefit Plan / Subscriber ID Effective Dates Phone Address Type Group [facility] [id number] 2016-Present [facility] ADVANTAGE MEDICARE BLUE PPO ([phone]) Guarantor Name Account Type Relation to Date of Phone Billing Patient Address Yanna Sherman Personal/Family 1940 [address] Sh[address] (Home) [place], [place] [phone] (Work) documented as of this encounter
--- OUTSIDE RECORDS SUMMARY | 2019-07-01 04:25 | XMS REPORT | Summary of Care ---
:1940 Author Organization [facility] Address [address] [facility] [place] [address] Care Team Providers Name Role Phone Gamal Montano Primary Care Provider Reason for Referral Refer to Department Only (Routine) Status Reason Specialty Diagnoses / Referred By Referred To Procedures Contact Contact Authorized Physical Diagnoses Primary osteoarthritis of one knee, right Marylin Isaac Therapy [facility] - [address] Therapy [place], [place] [address] [address] [address] Phone: [place], [place] [phone] Fax: Reason for Visit Reason Comments Knee Pain pt would like a referal for PT, R knee (ganglia). pt has arthritis Encounter Details Date Type Department Care Team Description 06/25/2019 Office Visit [place] [facility] Murali Isaac Primary osteoarthritis Medicine R[place] Gay of one knee, right [address] (Primary Dx) [place] [address] [phone] Allergies Active Allergy Reactions Severity Noted Date Comments Penicillins Rash 12/15/2012 Fluoxetine Other 10/31/2016 Became hyper & depressed documented as of this encounter (statuses as of 06/25/2019) Medications Medication Sig Dispensed Refills Start Date End Date Status Cyanocobalamin (VITAMIN Take 1 Tab by 0 Active B-12) 1000 MCG Oral Tab mouth DAILY. Loperamide HCl (IMODIUM Take by 0 Active A-D PO) mouth. Probiotic Product Take 1 Tab by 0 Active (PROBIOTIC DAILY PO) mouth DAILY. diclofenac potassium Take 1 Tab by 60 Tab 5 04/01/2018 Active (CATAFLAM) 50 MG Oral Tab mouth TWO TIMES DAILY NEEDED (knee pain). phenobarbital 15 MG Oral Take 6 Tabs by 180 Tab 1 06/19/2019 Active TabIndications: Abnormal mouth EVERY electroencephalogram BEDTIME. Max Daily Amount: 90 mg. 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 11/12/2017 Overview: Dr Boo [facility] Memory loss of unknown cause 04/03/2017 Cerebral aneurysm without rupture 06/18/2016 Overview: S/p craniotomy [place] Dr Boo Several clips placed in the [...] as of this encounter (statuses as of 06/25/2019) Resolved Problems Problem Noted Date Resolved Date Personal history of seizure disorder 06/18/2016 06/18/2016 Overview: Phenobarbital preventive treatment Anxiety 05/27/2017 documented as of this encounter (statuses as of 06/25/2019) Immunizations Name Administration Dates Next Due Influenza [...] Assigned at Date Recorded Not on file COVID-19 Exposure Response Date Recorded In the last month, have you been in contact with No / Unsure 06/25/2019 9:10 AM EDT someone who was confirmed or suspected to have Coronavirus / COVID-19? documented as of this encounter Last Filed Vital Signs Vital Sign Reading Time Taken Comments Blood Pressure 120/70 06/25/2019 11:03 AM EDT Pulse 77 06/25/2019 11:03 AM EDT Temperature 36.4 06/25/2019 11:03 AM EDT C (97.6 F) Respiratory Rate - - Oxygen Saturation - - Inhaled Oxygen Concentration - - Weight 58.5 kg (129 lb) 06/25/2019 11:03 AM EDT Height 162.6 cm (5' 4") 06/25/2019 11:03 AM EDT Body Mass Index 22.14 06/25/2019 11:03 AM EDT documented in this encounter Patient Instructions Patient InstructionsMurali Isaac PA - 06/25/2019 11:00 AM EDTPhysical therapy referral in place. Please schedule with Molly the physical therapist. documented in this encounter Progress Notes Murali Isaac PA - 06/25/2019 11:00 AM EDT PATIENT: Yanna Sherman : 1940 DATE OF SERVICE: 06/25/2019 Subjective SUBJECTIVE: Yanna Sherman is a 78-y.o. female who presents with right knee pain. Onset of the symptoms was several months ago. Inciting event: none known. Current symptoms include pain location: central: posterior. Associated symptoms: none. Aggravating symptoms: walking. Patient's overall course: gradually worsening. Patient has had prior knee problems. Previous visits for this problem: Physical therapy for the left knee s/p total replacement, no evaluation of the right knee Evaluation to date: none. Treatment to date: none. Past Medical History: Diagnosis Date ? Anxiety ? Essential hypertension, benign ? Meniere disease History reviewed. No pertinent family history. Current Outpatient Medications Medication Sig ? Cyanocobalamin (VITAMIN B-12) 1000 MCG Oral Tab Take 1 Tab by mouth DAILY. ? diclofenac potassium (CATAFLAM) 50 MG Oral Tab Take 1 Tab by mouth TWO TIMES DAILY NEEDED(knee pain). ? hydrochlorothiazide (HCTZ, ORETIC) 25 MG Oral Tab TAKE ONE TABLET BY MOUTH ONCE DAILY DIRECTED ? Loperamide HCl (IMODIUM A-D PO) Take by mouth. ? phenobarbital 15 MG Oral Tab Take 6 Tabs by mouth EVERY BEDTIME. Max Daily Amount: 90 mg. ? 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 Pets: none REVIEW OF SYSTEMS: Review of Systems Constitutional: Negative for fever and malaise/fatigue. Respiratory: Negative for cough, sputum production and shortness of breath. Cardiovascular: Negative for chest pain, palpitations and leg swelling. Musculoskeletal: Positive for joint pain. Negative for back pain and falls. Skin: Negative for itching and rash. Neurological: Negative for tingling, sensory change and weakness. Objective OBJECTIVE: BP 120/70 (BP Location: Right arm, Patient Position: Sitting) | Pulse 77 | Temp 97.6 F (36.4 C) (Tympanic) | Ht 5' 4" (1.626 m) | Wt 129 lb ( 58.5 kg) | BMI 22.14 kg/m RIGHT KNEE: positive exam findings: Ganglia noted posterior of the knee. Patient experiences pain with walking on the right lower extremity. LEFT KNEE: no effusion, full range of motion, ligamentous structures intact.. IMAGING: Patient not interested at this time. ASSESSMENT: ICD-9-CM ICD-10-CM 1. Primary osteoarthritis of one knee, right 715.16 M17.11 REFER TO PHYSICAL THERAPY / REHAB Plan PLAN: Natural history and expected course discussed. Questions answered. RICE therapy. Reduction in offending activity. [id number] acetaminophen. Physical therapy referral. If continues to be a problem, patient should return to Dr. Sharpe for further evaluation and treatment. Author: RONAN Murray 06/25/2019 15:53 documented in this encounter Plan of Treatment Date Type Specialty Care Team Description 06/30/2019 Office Visit Physical Therapy Molly Zhang, PT [address] [place], [place] [id number] 08/23/2019 Office Visit Internal Medicine Gamal Montano MD [address] [place] [address] Name Type Priority Associated Diagnoses Order Schedule REFER TO PHYSICAL Referral Routine Primary osteoarthritis of 99 Occurrences THERAPY / REHAB one knee, right starting 06/25/2019 until 06/24/2020 Health Maintenance Due Date Last Done Comments [...] Type Problems Progress Blood Pressure Blood Pressure 120/70 No Charmaine, < 150/90 (06/25/2019 Gamal Fuchs, 11:03 AM EDT) Note: This is an individualized treatment (blood [...] filedocumented in this encounter Visit Diagnoses Diagnosis Primary osteoarthritis of one knee, right documented in this encounter Insurance Payer Benefit Plan / Subscriber ID Effective Dates Phone Address Type Group [facility] MEDICARE EXCELLUS [id number] 2016-Present [facility] ADVANTAGE MEDICARE BLUE PPO ([phone]) Guarantor Name Account Type Relation to Date of Phone Billing Patient Address Yanna Sherman Personal/Family 1940 [address] [facility] [address] Sharma (Home) [place], [place] [phone] (Work) documented as of this encounter
[2019-07-01 05:29] LABS: ABS Basophils 0.1 10^3/ul (0-0.2); ABS Eosinophils 0.1 10^3/ul (0-0.6); ABS Lymphocytes 2.3 10^3/ul (1.0-4.8); ABS Monocytes 1.1 10^3/ul (0-0.8); ABS Neutrophils 7.3 10^3/ul (1.5-7.7); Hematocrit 39 % (35-47); Hemoglobin 13.6 g/dL (12.0-16.0); Lymphocyte % 20.8 %; Mean Corpuscular HGB Conc 35 g/dL (31-36); Mean Corpuscular Hemoglobin 31 pg (27-31); Mean Corpuscular Volume 89 fL (80-97); Mean Platelet Volume 8.9 fL (7.4-10.4); Platelet Count 432 10^3/uL (150-450); Red Blood Count 4.43 10^6 /uL (3.70-4.87); Red Cell Distribution Width 13 % (10-15); White Blood Count 10.8 10^3/uL (3.5-10.8)
[2019-07-01 05:35] LABS: INR 1.1 (0.82-1.09)
[2019-07-01] MEDS ORDERED: Naproxen TAB* 250 MG PO ONE (05:40)
--- NOTE | 2019-07-01 05:42 | ED ---
Altered Mental Status - HPI Summary HPI Summary: 78-year-old female with history of severe dementia presenting to [facility] accompanied by for evaluation after sustaining a fall two days ago with intermittent episodes of worsening confusion. Per , the patient had fallen but landed on her buttocks. He is concerned that the shunt in her brain from surgery 25 years ago has shifted because he has observed the patient to be more confused than usual since the fall with inability to find her words. She had been unable to walk and was using a wheelchair initially, but since yesterday she had been able to walk on her own. He also reports that a few months ago, she had a similar episode of fall with resulting confusion. He has tried to get a neurology appointment but has been unable to obtain one yet. Patient has been complaining of right knee pain with known osteoarthritis and ganglion cyst in the posterior aspect. She is not taking any medication for this , although she has taken Ibuprofen without relief. She has had her left knee replaced at [facility] by Dr. Sharpe, and she had an appointment scheduled this week for the right knee, but it was canceled. She states she does not have any pain now. She denies any cough. Past medical history includes HTN, Meniere disease, anxiety, DVT, acute gallstone pancreatitis. Former smoker. No alcohol or substance use. Medications reviewed. Allergies noted. LEVEL 5 CAVEAT SECONDARY TO HISTORY OF DEMENTIA. History obtained from and medical records. - History Of Current Complaint Stated Complaint: KNEE PAIN PER PT Hx Obtained From: Family/Detail Assembler - , Medical Records Hx From Patient Unobtainable Due To: Dementia Onset/Duration: Still Present Related History: Similar Episode/Diagnosed As: - dementia - Allergies/Home Medications Allergies/Adverse Reactions: Allergies Allergy/AdvReac Type Severity Reaction Status Date / Time Penicillins Allergy Unknown Verified 07/01/19 04:56 Reaction Details tetracycline Allergy Rash Verified 07/01/19 04:56 Home Medications: Home Medications PHENobarbitaL [Phenobarbital] 90 mg PO BEDTIME 10/18/15 [History Confirmed 06/30] Acetaminophen TAB* [Tylenol TAB*] 1 tab PO DAILY PRN 05/27/18 [History Confirmed 07/01/19] Cyanocobalamin TAB* [Vitamin B12 TAB*] 1 tab PO QAM 05/27/18 [History Confirmed 07/01/19] Equate Allergy 1 tab PO QAM 05/27/18 [History Confirmed 07/01/19] L.acidoph,Paracasei, B.lactis [Probiotic] 1 tab PO QAM 05/27/18 [History Confirmed 07/01/19] Melatonin 6 mg PO BEDTIME 05/27/18 [History Confirmed 07/01/19] hydroCHLOROthiazide [Hydrochlorothiazide] 25 mg PO QAM 05/27/18 [History Confirmed 07/01/19] Docusate CAP* [Colace Cap*] 100 mg PO BID PRN #90 cap 06/08/18 [Rx Confirmed ] PMH/Surg Hx/FS Hx/Imm Hx Endocrine/Hematology History: Denies: Hx Anticoagulant Therapy, Hx Diabetes Cardiovascular History: Reports: Hx Hypertension Respiratory History: Denies: Other Respiratory Problems/Disorders Musculoskeletal History: Reports: Hx Arthritis - knees, hands Sensory History: Reports: Hx Contacts or Glasses Denies: Hx Cataracts, Hx Glaucoma, Hx Hearing Aid Opthamlomology History: Reports: Hx Contacts or Glasses Denies: Hx Cataracts, Hx Glaucoma Neurological History: Reports: Hx Dementia, Hx Migraine, Hx Seizures - on meds to prevent seizure 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 Hx Anesthesia Reactions: Yes - diff waking up, difficulty moving legs Infectious Disease History: No Infectious Disease History: Reports: Hx Shingles Denies: Traveled Outside the [place] in Last 30 Days - Family History Known Family History: Positive: Other - ganglion cyst - Social History Alcohol Use: None Alcohol Amount: holidays Hx Substance Use: No Substance Use Type: Reports: None Hx Tobacco Use: Yes Smoking Status (MU): Former Smoker Amount Used/How Often: 3 packs a day Have You Smoked in the Last Year: No - Additional Comments History Additional Comments: dementia, brain shunt surgery 25 years ago, seizures, Meniere disease, hypertension, osteoarthritis, DVT Review of Systems - ROS Summary Review of Systems Summary: Home Medications Medication Instructions Recorded Confirmed Type PHENobarbitaL [Phenobarbital] 90 mg PO BEDTIME 10/18/15 07/01/19 History Acetaminophen TAB* [Tylenol TAB*] 1 tab PO DAILY PRN 05/27/18 07/01/19 History Cyanocobalamin TAB* [Vitamin B12 1 tab PO QAM 05/27/18 07/01/19 History TAB*] Equate Allergy 1 tab PO QAM 05/27/18 07/01/19 History L.acidoph,Paracasei, B.lactis 1 tab PO QAM 05/27/18 07/01/19 History [Probiotic] Melatonin 6 mg PO BEDTIME 05/27/18 07/01/19 History hydroCHLOROthiazide 25 mg PO QAM 05/27/18 07/01/19 History [Hydrochlorothiazide] Docusate CAP* [Colace Cap*] 100 mg PO BID PRN #90 cap 06/08/18 07/01/19 Rx Negative: Cough Positive: Arthralgia - right knee Neurological/Mental Status: Other - confusion, trouble finding words All Other Systems Reviewed And Are Negative: No - Comments Additional Review of Systems Comments: LEVEL 5 CAVEAT SECONDARY TO DEMENTIA. Physical Exam - Summary Physical Exam Summary: General: Well-developed, Well-nourished elderly female. No acute distress. HEENT: Normocephalic, Atraumatic. Eyes: Conjuctiva normal, PERRL. Oropharynx: Clear, mucous membranes moist, (-) exudates. Neck: Soft, FROM, (-) lymphadenopathy, (-) thyromegaly, (-) JVD. Cardiovascular: Normal sinus rhythm, (-) murmur. Lungs: Clear to auscultation bilaterally (-) wheezes, (-) rales, (-) rhonchi. Abdomen: Soft, non-tender, non-distended, (-) organomegaly, normal bowel sounds. Back: (-) CVA tenderness Extremities: Right knee has some mild swelling, No erythema or warmth, Good ROM. Posterior patellar prominence has no significant tenderness. Skin: Warm, dry, (-) rash. Neuro: Alert, Able to give her name and year of , Unable to identify word for where she is, Seems to be having a hard time finding her words. Does follow commands. Normal strength, normal sensation in all extremities. Psychiatric: Mood normal, affect normal. GCS: 14 (see scale). NIH: 4 (see scale). Triage Information Reviewed: Yes Vital Signs On Initial Exam: Initial Vitals Temp Pulse Resp BP Pulse Ox 97.8 F 81 14 166/81 99 07/01/19 04:19 07/01/19 04:19 07/01/19 04:19 07/01/19 04:19 07/01/19 04:19 Vital Signs Reviewed: Yes Completion Of Physical Exam Limited Due To: Dementia, Level 5 - Tawnya Coma Scale Best Eye Response: 4 - Spontaneous Best Motor Response: 6 - Obeys Commands Best Verbal Response: 4 - Confused Coma Scale Total: 14 Procedures - Sedation Patient Received Moderate/Deep Sedation with Procedure: No Diagnostics - Vital Signs Vital Signs Temp Pulse Resp BP Pulse Ox 07/01/19 05:22 74 150/78 99 07/01/19 05:06 71 100 07/01/19 04:42 77 152/84 97 07/01/19 04:40 75 97 07/01/19 04:19 97.8 F 81 14 166/81 99 - Laboratory Lab Results: Lab Results 07/01/19 07/01/19 Range/Units 05:18 05:18 WBC 10.8 (3.5-10.8) 10^3/uL RBC 4.43 (3.70-4.87) 10^6 /uL Hgb 13.6 (12.0-16.0) g/dL Hct 39 (35-47) % MCV 89 (80-97) fL MCH 31 (27-31) pg MCHC 35 (31-36) g/dL RDW 13 (10-15) % Plt Count 432 (150-450) 10^3/uL MPV 8.9 (7.4-10.4) fL Neut % (Auto) 67.3 % Lymph % (Auto) 20.8 % Walker % (Auto) 9.7 % Eos % (Auto) 1.0 % Baso % (Auto) 1.2 % Absolute Neuts (auto) 7.3 (1.5-7.7) 10^3/ul Absolute Lymphs (auto) 2.3 (1.0-4.8) 10^3/ul Absolute Monos (auto) 1.1 H (0-0.8) 10^3/ul Absolute Eos (auto) 0.1 (0-0.6) 10^3/ul Absolute Basos (auto) 0.1 (0-0.2) 10^3/ul Absolute Nucleated RBC 0.0 10^3/ul Nucleated RBC % 0.0 INR (Anticoag Therapy) 1.10 H (0.82-1.09) Result Diagrams: 07/01/19 05:18 07/01/19 05:18 Lab Statement: Any lab studies that have been ordered have been reviewed, and results considered in the medical decision making process. - Radiology CXR Radiology Interpretation Completed By: ED Physician Summary of Radiographic Findings: No infiltrate. No pleural effusion. This image was reviewed and interpreted by Dr. Camejo, pending official report. Right Knee XR Radiology Interpretation Completed By: ED Physician Summary of Radiographic Findings: Osteoarthritis of the right knee. This image was reviewed and interpreted by Dr. Camejo, pending official report. - CT Brain CT CT Interpretation Completed By: Radiologist Summary of CT Findings: Impression: 1. Stable CT examination of the brain. 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 No evidence of acute intracranial hemorrhage. No intracranial mass. 2. Ventricular catheter in place. No evidence of obstructive hydrocephalus. This report was reviewed by Dr. Camejo. - EKG 0535 Cardiac Rate: NL - 73 BPM EKG Rhythm: Sinus Rhythm Summary of EKG Findings: EKG at 0535 reveals normal sinus rhythm with rate of 73 BPM, no acute changes, no ischemic changes. This EKG was reviewed and interpreted by Dr. Camejo. National Institutes Of Health - NIH Scale Level of Consciousness: Alert/Keenly Responsive Ask Patient the Month and His/Her Age: Neither Correct/Aphasic Ask Pt to Open/Close Eyes and Screener Perfumer/Release Non-Paretic Hand: Both Correctly Best Gaze (Only Horizontal Eye Movement): Normal Visual Field Testing: No Visual Loss Facial Paresis-Pt to Smile & Close Eyes or Grimace Symmetry: Normal/Symmetrical Motor Function - Right Arm: No Drift-Holds 10 Seconds Motor Function - Left Arm: No Drift-Holds 10 Seconds Motor Function - Right Leg: No Drift-Holds 10 Seconds Motor Function - Left Leg: No Drift-Holds 10 Seconds Limb Ataxia-Must be out of Proportion to Weakness Present: Absent Sensory (Use Pinprick to Test Arms/Legs/Trunk/Face): Normal Best Language (Describe Picture, Name Items): Severe Aphasia Dysarthria (Read Several Words): Normal Extinction and Inattention: No Abnormality Total Score: 4 Re-Evaluation - Re-Evaluation First Eval Re-Evaluation Time: 06:35 Comment: I discussed all results. Discussed all symptoms that warrant return to the ED. Altered Mental Statu Course/Dx - Course Course Of Treatment: 78-year-old female with dementia brought to the emergency room by her for evaluation for confusion in follow up. is a very poor historian. He does states she fell 2 days ago. Thinks her symptoms of confusion have been worse since then but then will see that her confusion has been worsening for months. He does have frequent falls. He is concerned that her intracranial shunt as shifted. she had surgery 25 years ago to have the shunt placed. He notes the patient is having a very hard time finding her words right now. Sometimes she is able to walk on her own but sometime she needs to use a wheelchair. This appears to be intermittent. He has tried to get a neurology appointment but has been unable to obtain one yet. Patient has been complaining of right knee pain with known osteoarthritis and ganglion cyst in the posterior aspect. She is not taking any medication for this, although she has taken Ibuprofen without relief. She has had her left knee replaced at [facility] by Dr. Sharpe, and she had an appointment scheduled this week for the right knee, but it was canceled. She states she does not have any pain now. She denies any cough. no fevers. No chest pain or shortness of breath. On physical exam patient has difficulty finding words. She is able to tell you her name and year of . Normal strength and sensation in upper and lower extremities bilaterally. Patient is able to walk unattended. Workup demonstrates no obvious acute abnormalities including CT brain.syndrome and naproxen for knee pain. Ice pack. Advised to follow-up with orthopedics for this. For her confusion, word finding, follows follow-up with PCP and neurology. Follow sooner for any worsening symptoms. - Diagnoses Provider Diagnoses: Anomia, Right knee pain, Osteoarthritis of left knee - Critical Care Time Critical Care Statement: Critical care time is provided exclusive of any time spent performing procedures. Discharge ED - Sign-Out/Discharge Documenting (check all that apply): Patient Departure - Patient will be discharged home. - Discharge Plan Condition: Stable Disposition: HOME Patient Education Materials: Aphasia (DC), Anomic Aphasia Exercises (DC), Osteoarthritis (DC), Knee Pain (ED) Referrals: Shannan Sharpe MD [Medical Doctor] - 3 Days Gamal Montano MD [Primary Care Provider] - 3 Days Emerson Estes MD [Medical Doctor] - 3 Days Additional Instructions: Please elevate your knee. Apply ice and continue taking Ibuprofen 400mg three times a day with food for pain. Follow up with Dr. Sharpe from orthopedics like you had planned. You should additionally follow up with your primary care provider and neurology for your concerns with dementia and confusion. Return to the emergency department for any new or worsening symptoms. - Billing Disposition and Condition Condition: STABLE Disposition: Home - Attestation Statements Document Initiated by Jasmyn: Yes Documenting Scribe: Sheri Carter Provider For Whom Jasmyn is Documenting (Include Credential): Sana Camejo MD Scribe Attestation: Sheri Salinas, scribed for Sana Camejo MD on 07/05/19 at 0414. Scribe Documentation Reviewed: Yes Provider Attestation: The documentation as recorded by the Sheri hart accurately reflects the service I personally performed and the decisions made by me, Sana Camejo MD Status of Scribe Document: Viewed
[2019-07-01 05:50] LABS: Albumin 4.5 g/dL (3.2-5.2); Albumin/Globulin Ratio 1.4 (1-3); BUN/Creatinine Ratio 23.6 (8-20); Calcium 10.2 mg/dL (8.6-10.3); EGFR Non-African American 78.5 (>60); Globulin 3.2 g/dL (2-4); Potassium 3.2 mmol/L (3.5-5.0); Total Bilirubin 0.5 mg/dL (0.2-1.0); Total Protein 7.7 g/dL (6.4-8.9)
[2019-07-01 05:52] LABS: Troponin I 0.01 ng/mL (<0.03)
[2019-07-01 06:19] LABS: Urine Appearance Clear; Urine Bilirubin Negative (Negative); Urine Blood Negative (Negative); Urine Color Yellow; Urine Glucose Negative (Negative); Urine Ketones Negative (Negative); Urine Nitrite Negative (Negative); Urine Protein Negative (Negative); Urine Specific Gravity 1.014 (1.010-1.030); Urine Urobilinogen Negative (Negative)
[2019-07-01 06:20] LABS: Urine Bacteria Absent (Absent); Urine Red Blood Cell Trace(0-2/hpf) (Absent); Urine Squamous Epithelial Cell Present (Absent); Urine White Blood Cell Trace(0-5/hpf) (Absent)
[2019-07-01 06:45] VITALS: BP 134/80
== END 2019-07-01 07:07 | disposition home or self-care (01) ==
LOC: ED 04:19
DX: R48.8 Other symbolic dysfunctions (principal); M17.12 Unilateral primary osteoarthritis, left knee; M25.561 Pain in right knee; F03.90 Unspecified dementia, unspecified severity, without behavioral disturbance, psychotic disturbance, mood disturbance, and anxiety; I10 Essential (primary) hypertension; F41.9 Anxiety disorder, unspecified; H81.09 Meniere's disease, unspecified ear; Z79.899 Other long term (current) drug therapy; Z88.0 Allergy status to penicillin; Z86.718 Personal history of other venous thrombosis and embolism; Z87.891 Personal history of nicotine dependence; R94.31 Abnormal electrocardiogram [ECG] [EKG]
CPT/HCPCS: 36415; 70450; 71045; 80053; 80184; 81003; 83605; 84484; 85025; 85610; 87040; 87086; 93005; 99283; A9270-GY

== ENCOUNTER 2020-03-24 14:39 | Observation (INO) ==
[2020-03-24 16:23] LABS: ABS Basophils 0.1 10^3/ul (0-0.2); ABS Eosinophils 0.2 10^3/ul (0-0.6); ABS Lymphocytes 2.6 10^3/ul (1.0-4.8); ABS Monocytes 0.7 10^3/ul (0-0.8); ABS Neutrophils 4.6 10^3/ul (1.5-7.7); Eosinophil % 2.1 %; Hematocrit 40 % (35-47); Hemoglobin 13.6 g/dL (12.0-16.0); Lymphocyte % 31.7 %; Mean Corpuscular HGB Conc 34 g/dL (31-36); Mean Corpuscular Hemoglobin 30 pg (27-31); Mean Corpuscular Volume 90 fL (80-97); Mean Platelet Volume 8.6 fL (7.4-10.4); Nucleated Red Blood Cells % 0.1; Platelet Count 359 10^3/uL (150-450); Red Blood Count 4.48 10^6 /uL (3.70-4.87); Red Cell Distribution Width 14 % (10-15); White Blood Count 8.1 10^3/uL (3.5-10.8)
[2020-03-24 16:51] LABS: Albumin 4.6 g/dL (3.2-5.2); Albumin/Globulin Ratio 1.6 (1-3); BUN/Creatinine Ratio 19.7 (8-20); C Reactive Protein 20.22 mg/L (<8.01); Calcium 10.2 mg/dL (8.6-10.3); EGFR African American 96.3 (>60); EGFR Non-African American 79.6 (>60); Globulin 2.8 g/dL (2-4); Potassium 4.4 mmol/L (3.5-5.0); Total Bilirubin 0.2 mg/dL (0.2-1.0); Total Protein 7.4 g/dL (6.4-8.9)
[2020-03-24] MEDS ORDERED: NS 0.9% 1000 ml BAG 1,000 ML IV ONE (17:37)
[2020-03-24] MEDS ORDERED: Iohexol 300 (CONTRAST) 10 ML SDV IV ONE (17:40)
[2020-03-24] MEDS ORDERED: hydrALAZINE 20 mg/ml 1 ML Vial IV IV SLOW PU ONE (17:53)
[2020-03-24] MEDS ORDERED: Lorazepam PYXIS KEY PRN (19:39)
[2020-03-24] MEDS ORDERED: diPHENhydraMINE IV 50 MG/ML 1 ml VIAL (BENADRYL) SLOW PUSH ONE (19:39)
[2020-03-24] MEDS ORDERED: LORazepam 2 mg VIAL 1 ml IV PUSH ONE (19:39)
[2020-03-24] MEDS ORDERED: Lorazepam PYXIS KEY ONE (19:42)
[2020-03-25] MEDS: Heparin 5000 UNITS/ML 1 mL VIAL SUBCUT SCH ×2 (00:10→05:19)
[2020-03-25] MEDS ORDERED: LORazepam 2 mg VIAL 1 ml IV PUSH ONE (01:20)
[2020-03-25] MEDS ORDERED: Lorazepam PYXIS KEY PRN (01:20)
[2020-03-25] MEDS ORDERED: LORazepam 2 mg VIAL 1 ml IV PUSH PRN (05:41)
[2020-03-25] MEDS ORDERED: Cholecalciferol (VIT D3) 1,000 unit TAB PO SCH (09:00)
[2020-03-25 11:40] VITALS: BP 139/63
== END 2020-03-25 14:30 | disposition home or self-care (01) ==
LOC: MEDTELE 14:39 → ED 14:39 → MEDTELE 23:30
PROVIDERS: ADMIT Internal Medicine Interventional Cardiology; ATTEND Student in an Organized Health Care Education/Training Program

== ENCOUNTER 2020-09-23 14:25 | Inpatient (IN) ==
[2020-09-23 17:50] LABS: ABS Basophils 0.1 10^3/ul (0-0.2); ABS Eosinophils 0.1 10^3/ul (0-0.6); ABS Monocytes 0.7 10^3/ul (0-0.8); ABS Neutrophils 4.6 10^3/ul (1.5-7.7); Hematocrit 39 % (35-47); Hemoglobin 12.8 g/dL (12.0-16.0); Lymphocyte % 35.3 %; Mean Corpuscular HGB Conc 33 g/dL (31-36); Mean Corpuscular Hemoglobin 30 pg (27-31); Mean Corpuscular Volume 91 fL (80-97); Mean Platelet Volume 9.4 fL (7.4-10.4); Nucleated Red Blood Cells % 0.1; Platelet Count 318 10^3/uL (150-450); Red Blood Count 4.26 10^6 /uL (3.70-4.87); Red Cell Distribution Width 14 % (10-15); White Blood Count 8.5 10^3/uL (3.5-10.8)
[2020-09-23 17:51] LABS: Urine Appearance Cloudy; Urine Bilirubin Negative (Negative); Urine Blood Negative (Negative); Urine Color Yellow; Urine Glucose Negative (Negative); Urine Ketones Negative (Negative); Urine Nitrite Negative (Negative); Urine Protein Negative (Negative); Urine Specific Gravity 1.025 (1.002-1.030); Urine Urobilinogen Negative (Negative)
[2020-09-23 18:07] LABS: Albumin 4.4 g/dL (3.2-5.2); Albumin/Globulin Ratio 1.6 (1-3); EGFR African American 79.1 (>60); EGFR Non-African American 65.4 (>60); Globulin 2.8 g/dL (2-4); Magnesium 2.3 mg/dL (1.9-2.7); Potassium 3.5 mmol/L (3.5-5.0); Total Bilirubin 0.3 mg/dL (0.2-1.0); Total Protein 7.2 g/dL (6.4-8.9)
[2020-09-23 18:10] LABS: Urine Bacteria Absent (Absent); Urine Red Blood Cell Absent (Absent); Urine Squamous Epithelial Cell Present (Absent); Urine White Blood Cell Trace(0-5/hpf) (Absent)
[2020-09-23] MEDS ORDERED: Iohexol 300 (CONTRAST) 10 ML SDV IV ONE (18:24)
[2020-09-24] MEDS ORDERED: Lorazepam PYXIS KEY PRN (02:00)
[2020-09-24] MEDS ORDERED: LORazepam 2 mg VIAL 1 ml IV PUSH ONE (02:00)
[2020-09-24] MEDS: NS 0.9% 1000 ml BAG 1,000 ML IV SCH ×2 (02:08→21:59)
[2020-09-24] MEDS: Aspirin EC 81 mg TAB.EC (enteric coated) PO SCH (08:03)
[2020-09-24] MEDS: Cholecalciferol (VIT D3) 1,000 unit TAB PO SCH (08:05)
[2020-09-24] MEDS ORDERED: Enoxaparin 30 MG/0.3 ML SYR SUBCUT SCH (18:00)
[2020-09-25] MEDS ORDERED: Lorazepam PYXIS KEY PRN (08:06)
[2020-09-25] MEDS: LORazepam 2 mg VIAL 1 ml IV PUSH PRN ×3 (08:26→16:38)
[2020-09-25] MEDS: Aspirin EC 81 mg TAB.EC (enteric coated) PO SCH (08:26)
[2020-09-25] MEDS: Cholecalciferol (VIT D3) 1,000 unit TAB PO SCH (08:26)
[2020-09-25 08:53] LABS: Urine Appearance Cloudy; Urine Bilirubin Negative (Negative); Urine Blood Negative (Negative); Urine Color Yellow; Urine Glucose Negative (Negative); Urine Ketones Negative (Negative); Urine Nitrite Negative (Negative); Urine Protein Negative (Negative); Urine Specific Gravity 1.012 (1.002-1.030); Urine Urobilinogen Negative (Negative)
[2020-09-25 08:57] LABS: Urine Bacteria 1+ (Absent); Urine Red Blood Cell 1+(3-5/hpf) (Absent); Urine Squamous Epithelial Cell Present (Absent); Urine White Blood Cell Trace(0-5/hpf) (Absent)
[2020-09-26] MEDS: LORazepam 2 mg VIAL 1 ml IV PUSH PRN (04:03)
[2020-09-26] MEDS: Aspirin EC 81 mg TAB.EC (enteric coated) PO SCH (09:37)
[2020-09-26] MEDS: Cholecalciferol (VIT D3) 1,000 unit TAB PO SCH (09:44)
[2020-09-27] MEDS: Aspirin EC 81 mg TAB.EC (enteric coated) PO SCH (08:26)
[2020-09-27] MEDS: Cholecalciferol (VIT D3) 1,000 unit TAB PO SCH (08:26)
[2020-09-27] MEDS: Lidocaine PATCH 5% PATCH TRANSDERM SCH (14:16)
[2020-09-27] MEDS: LORazepam 2 mg VIAL 1 ml IV PUSH PRN (21:56)
[2020-09-27] MEDS: Lidocaine Patch REMOVE PATCH PATCH OFF SCH (22:00)
[2020-09-28] MEDS: LORazepam 2 mg VIAL 1 ml IV PUSH PRN ×3 (10:08→22:55)
[2020-09-28] MEDS: Aspirin EC 81 mg TAB.EC (enteric coated) PO SCH (10:15)
[2020-09-28] MEDS: Lidocaine PATCH 5% PATCH TRANSDERM SCH (10:16)
[2020-09-28] MEDS: Cholecalciferol (VIT D3) 1,000 unit TAB PO SCH (10:16)
[2020-09-28] MEDS: Lidocaine Patch REMOVE PATCH PATCH OFF SCH (20:13)
[2020-09-29] MEDS: LORazepam 2 mg VIAL 1 ml IV PUSH PRN (03:50)
[2020-09-29] MEDS: Lidocaine PATCH 5% PATCH TRANSDERM SCH (09:30)
[2020-09-29] MEDS: Cholecalciferol (VIT D3) 1,000 unit TAB PO SCH (09:31)
[2020-09-29] MEDS: Aspirin EC 81 mg TAB.EC (enteric coated) PO SCH (09:31)
[2020-09-30] MEDS: Lidocaine Patch REMOVE PATCH PATCH OFF SCH ×2 (04:29→21:42)
[2020-09-30 06:23] LABS: ABS Basophils 0.1 10^3/ul (0-0.2); ABS Eosinophils 0.2 10^3/ul (0-0.6); ABS Lymphocytes 1.8 10^3/ul (1.0-4.8); ABS Monocytes 1.3 10^3/ul (0-0.8); ABS Neutrophils 7.1 10^3/ul (1.5-7.7); Eosinophil % 1.5 %; Hematocrit 38 % (35-47); Hemoglobin 12.5 g/dL (12.0-16.0); Lymphocyte % 17.1 %; Mean Corpuscular HGB Conc 33 g/dL (31-36); Mean Corpuscular Hemoglobin 31 pg (27-31); Mean Corpuscular Volume 92 fL (80-97); Mean Platelet Volume 9.2 fL (7.4-10.4); Nucleated Red Blood Cells % 0.1; Platelet Count 339 10^3/uL (150-450); Red Cell Distribution Width 14 % (10-15); White Blood Count 10.4 10^3/uL (3.5-10.8)
[2020-09-30 06:36] LABS: Calcium 9.7 mg/dL (8.6-10.3); EGFR African American 84.9 (>60); EGFR Non-African American 70.2 (>60); Potassium 3.7 mmol/L (3.5-5.0)
[2020-09-30] MEDS: Lidocaine PATCH 5% PATCH TRANSDERM SCH (10:46)
[2020-09-30] MEDS: Cholecalciferol (VIT D3) 1,000 unit TAB PO SCH (10:46)
[2020-09-30] MEDS: Aspirin EC 81 mg TAB.EC (enteric coated) PO SCH (10:46)
[2020-09-30] MEDS ORDERED: Enoxaparin 40 MG/0.4 ML SYR SUBCUT SCH (18:00)
[2020-09-30] MEDS: Senna TAB 8.6 mg TAB PO SCH (20:06)
[2020-10-01 08:35] LABS: Urine Appearance Clear; Urine Bilirubin Negative (Negative); Urine Blood Negative (Negative); Urine Color Yellow; Urine Glucose Negative (Negative); Urine Ketones Trace (Negative); Urine Nitrite Negative (Negative); Urine Protein Negative (Negative); Urine Specific Gravity 1.017 (1.002-1.030); Urine Urobilinogen Negative (Negative)
[2020-10-01] MEDS: LORazepam 2 mg VIAL 1 ml IV PUSH PRN (10:01)
[2020-10-01] MEDS: Lidocaine PATCH 5% PATCH TRANSDERM SCH (10:08)
[2020-10-01] MEDS: Cholecalciferol (VIT D3) 1,000 unit TAB PO SCH (10:12)
[2020-10-01] MEDS: Aspirin EC 81 mg TAB.EC (enteric coated) PO SCH (10:12)
[2020-10-01] MEDS: Polyethylene Glycol 3350 17 GM PACKET PO SCH (11:19)
[2020-10-01] MEDS: Senna TAB 8.6 mg TAB PO SCH (19:13)
[2020-10-01] MEDS: Enoxaparin 40 MG/0.4 ML SYR SUBCUT SCH (19:13)
[2020-10-01] MEDS: Lidocaine Patch REMOVE PATCH PATCH OFF SCH (19:14)
[2020-10-02] MEDS: Polyethylene Glycol 3350 17 GM PACKET PO SCH (07:50)
[2020-10-02] MEDS: Cholecalciferol (VIT D3) 1,000 unit TAB PO SCH (07:50)
[2020-10-02] MEDS: Lidocaine PATCH 5% PATCH TRANSDERM SCH (07:50)
[2020-10-02] MEDS: Aspirin EC 81 mg TAB.EC (enteric coated) PO SCH (07:51)
[2020-10-02] MEDS: LORazepam 2 mg VIAL 1 ml IV PUSH PRN (09:27)
[2020-10-02] MEDS ORDERED: Lorazepam PYXIS KEY PRN (20:09)
[2020-10-02] MEDS ORDERED: LORazepam 2 mg VIAL 1 ml IV PUSH ONE (20:10)
[2020-10-02] MEDS ORDERED: LORazepam 2 mg VIAL 1 ml ONE (20:14)
[2020-10-02] MEDS: Enoxaparin 40 MG/0.4 ML SYR SUBCUT SCH (20:55)
[2020-10-02] MEDS: Lidocaine Patch REMOVE PATCH PATCH OFF SCH (21:00)
[2020-10-02] MEDS: Senna TAB 8.6 mg TAB PO SCH (21:41)
[2020-10-03] MEDS ORDERED: LORazepam 2 mg VIAL 1 ml IV PUSH ONE (09:44)
[2020-10-03] MEDS ORDERED: Lorazepam PYXIS KEY PRN (09:44)
[2020-10-03] MEDS: Aspirin EC 81 mg TAB.EC (enteric coated) PO SCH (10:23)
[2020-10-03] MEDS: Lidocaine PATCH 5% PATCH TRANSDERM SCH (10:23)
[2020-10-03] MEDS: Cholecalciferol (VIT D3) 1,000 unit TAB PO SCH (10:23)
[2020-10-03] MEDS: Polyethylene Glycol 3350 17 GM PACKET PO SCH (10:24)
[2020-10-03] MEDS: Senna TAB 8.6 mg TAB PO SCH (19:43)
[2020-10-03] MEDS: Enoxaparin 40 MG/0.4 ML SYR SUBCUT SCH (21:37)
[2020-10-03] MEDS: Lidocaine Patch REMOVE PATCH PATCH OFF SCH (21:37)
[2020-10-04 04:52] VITALS: BP 151/69
[2020-10-04] MEDS: Cholecalciferol (VIT D3) 1,000 unit TAB PO SCH (08:41)
[2020-10-04] MEDS: Lidocaine PATCH 5% PATCH TRANSDERM SCH (08:44)
[2020-10-04] MEDS: Polyethylene Glycol 3350 17 GM PACKET PO SCH (08:44)
[2020-10-04] MEDS: Aspirin EC 81 mg TAB.EC (enteric coated) PO SCH (08:44)
== END 2020-10-04 09:05 | DRG 392 ==
LOC: MEDTELE 14:25 → ED 14:25 → MEDTELE 21:45
PROVIDERS: ADMIT Hospitalist; ATTEND Hospitalist

== ENCOUNTER 2020-10-06 11:46 | Observation (INO) ==
[2020-10-06] MEDS ORDERED: Lidocaine 1% VIAL 10 MG/ML VIAL INJ ONE (13:46)
[2020-10-06 14:28] LABS: ABS Basophils 0.1 10^3/ul (0-0.2); ABS Eosinophils 0.1 10^3/ul (0-0.6); ABS Lymphocytes 1.8 10^3/ul (1.0-4.8); ABS Monocytes 0.7 10^3/ul (0-0.8); ABS Neutrophils 6.2 10^3/ul (1.5-7.7); Eosinophil % 0.7 %; Hematocrit 39 % (35-47); Hemoglobin 12.9 g/dL (12.0-16.0); Mean Corpuscular HGB Conc 33 g/dL (31-36); Mean Corpuscular Hemoglobin 30 pg (27-31); Mean Corpuscular Volume 90 fL (80-97); Mean Platelet Volume 8.7 fL (7.4-10.4); Platelet Count 557 10^3/uL (150-450); Red Blood Count 4.29 10^6 /uL (3.70-4.87); Red Cell Distribution Width 14 % (10-15); White Blood Count 8.8 10^3/uL (3.5-10.8)
[2020-10-06 14:36] LABS: Activated Partial Thrombo Time 33.2 seconds (26.0-38.0); INR 1.1 (0.86-1.15)
[2020-10-06 15:09] LABS: Albumin 4.2 g/dL (3.2-5.2); Albumin/Globulin Ratio 1.2 (1-3); Calcium 10.1 mg/dL (8.6-10.3); EGFR African American 87.5 (>60); EGFR Non-African American 72.3 (>60); Globulin 3.4 g/dL (2-4); Potassium 3.6 mmol/L (3.5-5.0); Total Bilirubin 0.3 mg/dL (0.2-1.0); Total Protein 7.6 g/dL (6.4-8.9)
[2020-10-06] MEDS ORDERED: Polyethylene Glycol 3350 17 GM PACKET PO PRN (16:26)
[2020-10-06] MEDS ORDERED: LORazepam 2 mg VIAL 1 ml IV PUSH ONE (17:20)
[2020-10-06] MEDS ORDERED: Lorazepam PYXIS KEY PRN (17:20)
[2020-10-06] MEDS ORDERED: Senna TAB 8.6 mg TAB PO SCH (21:00)
[2020-10-06] MEDS ORDERED: Lidocaine Patch REMOVE PATCH PATCH OFF SCH (21:00)
[2020-10-07] MEDS ORDERED: Acetaminophen IV 1 GM/100ML 100 ML IV ONE (03:34)
[2020-10-07] MEDS ORDERED: Lidocaine PATCH 5% PATCH TRANSDERM SCH (09:00)
[2020-10-07] MEDS ORDERED: Cholecalciferol (VIT D3) 1,000 unit TAB PO SCH (09:00)
[2020-10-07] MEDS ORDERED: Aspirin EC 81 mg TAB.EC (enteric coated) PO SCH (09:00)
[2020-10-07] MEDS ORDERED: Iohexol 350 (CONTRAST) 500 ML MDV IV ONE ×2 (11:06→11:14)
[2020-10-07 15:03] VITALS: BP 142/52
== END 2020-10-07 17:15 ==
LOC: MEDTELE 11:46 → ED 11:46
PROVIDERS: ADMIT Internal Medicine; ATTEND Hospitalist